=== PATIENT | female | born 1935 | race Caucasian/White ===

== ENCOUNTER 2016-10-21 00:08 | Emergency (ER) | payer MEDICARE, BC ==
--- NOTE | 2016-10-21 00:25 | ED ---
General Adult HPI - General Stated complaint: fell, head injury Time Seen by Provider: 10/21/16 00:18 Source: patient, EMS, RN notes reviewed Mode of arrival: EMS Limitations: no limitations - History of Present Illness Initial comments: Patient is a pleasant 81-year-old female presenting to the emergency department following a fall. Patient has frequent falls. Patient did strike the right side of her head. No loss of consciousness. Patient only has mild headache. No neck or back pain. No new extremity pain however patient does have discomfort of her right ankle from a fall previously. Patient also has some discomfort of her left ribs also from her previous fall. No difficulty in breathing. No confusion or weakness. - Related Data Home Medications Medication Instructions Recorded Confirmed Aspirin [Adult Low Dose Aspirin EC] 81 mg PO DAILY 09/10/15 06/01/16 Ciclesonide [Alvesco] 1 puff INHALATION RT-BID 09/10/15 06/01/16 Montelukast [Singulair] 10 mg PO HS 09/10/15 06/01/16 Phenytoin Sodium Extended 100 mg PO QAM 09/10/15 06/01/16 [Dilantin] Phenytoin Sodium Extended 200 mg PO HS 09/10/15 06/01/16 [Dilantin] Sertraline [Zoloft] 50 mg PO DAILY 09/10/15 06/01/16 cycloSPORINE [Restasis] 1 drop BOTH EYES HS 09/10/15 06/01/16 Budesonide [Pulmicort] 0.5 mg INHALATION RT-BID 05/09/16 06/01/16 Multivitamins, Thera [Multivitamin] 1 tab PO DAILY 05/09/16 06/01/16 Esomeprazole Magnesium [NexIUM] 20 mg PO DAILY 05/16/16 06/01/16 Atorvastatin [Lipitor] 10 mg PO HS 06/01/16 06/01/16 Bisacodyl [Dulcolax] 10 mg RECTAL DAILY PRN 06/01/16 06/01/16 Clotrimazole/Betamethasone Dip 1 applic TOPICAL Q12H 06/01/16 06/01/16 [Lotrisone Cream] Dimethicone/Zinc Oxide [Inzo Zinc 1 applic TOPICAL Q12H 06/01/16 06/01/16 Oxide Barrier Cream] Furosemide [Lasix] 10 mg PO DAILY 06/01/16 06/01/16 Lactulose 10 gm PO BID 06/01/16 06/01/16 Magnesium Hydroxide [Milk of 2,400 mg PO DAILY PRN 06/01/16 06/01/16 Magnesia] Na Phos,M-B/Na Phos,Di-Ba [Fleet 133 ml RECTAL DAILY PRN 06/01/16 06/01/16 Adult] Polyethylene Glycol 3350 [Miralax] 17 gm PO MOWEFR 06/01/16 06/01/16 guaiFENesin [guaiFENesin ER] 1,200 mg PO BID 06/01/16 06/01/16 Previous Rx's Medication Instructions Recorded Ipratropium-Albuterol Nebulize 3 ml INHALATION RT-QID ampul.neb 05/19/16 [Duoneb 0.5 mg-3 mg/3 ml Soln] Lisinopril [Zestril] 10 mg PO DAILY tab 05/19/16 Cefuroxime [Ceftin] 500 mg PO BID #10 tab 06/03/16 Hydrocodone/Acetaminophen [[place] 1 tab PO Q6H PRN #20 tablet 06/03/16 5-325] Ipratropium-Albuterol Nebulize 3 ml INHALATION RT-QID PRN #0 06/03/16 [Duoneb 0.5 mg-3 mg/3 ml Soln] ampul.neb Zaleplon 5 mg PO HS #10 capsule 06/03/16 Allergies Allergy/AdvReac Type Severity Reaction Status Date / Time shellfish derived [Shellfish] Allergy Unknown Verified 05/16/16 11:59 sulfamethoxazole Allergy Unknown Verified 06/01/16 22:33 [From Bactrim] trimethoprim [From Bactrim] Allergy Unknown Verified 06/01/16 22:33 yeast, dried [yeast] Allergy Unknown Verified 05/16/16 11:59 Review of Systems ROS Statement: Those systems with pertinent positive or pertinent negative responses have been documented in the HPI. ROS Other: All systems not noted in ROS Statement are negative. Constitutional: Denies: fever Eyes: Denies: eye pain ENT: Denies: ear pain Respiratory: Denies: cough, dyspnea Cardiovascular: Denies: palpitations Endocrine: Denies: fatigue Gastrointestinal: Denies: abdominal pain Genitourinary: Denies: dysuria Musculoskeletal: Denies: back pain Skin: Denies: rash Neurological: Reports: headache (Mild). Denies: weakness Past Medical History Past Medical History: Asthma, COPD, GERD/Reflux, Hyperlipidemia, Hypertension, Pneumonia Additional Past Medical History / Comment(s): uti, djd, fall/lt rib fx History of Any Multi-Drug Resistant Organisms: None Reported Past Surgical History: Section, Cholecystectomy, Hernia Repair, Orthopedic Surgery Additional Past Surgical History / Comment(s): right wrist rx, right ankle rx Past Anesthesia/Blood Transfusion Reactions: No Reported Reaction Past Psychological History: Depression Additional Psychological History / Comment(s): admits to some deprssion denies thaoughts of harming self but feels hpelessness for future. Smoking Status: Former smoker Past Alcohol Use History: None Reported Past Drug Use History: None Reported - Past Family History Mother History Unknown: Yes Father Family Medical History: Myocardial Infarction ([place]) General Exam Limitations: no limitations General appearance: alert, in no apparent distress Head exam: Present: atraumatic, normocephalic Eye exam: Present: normal appearance, PERRL, EOMI ENT exam: Present: normal oropharynx Neck exam: Present: normal inspection. Absent: tenderness Respiratory exam: Present: normal lung sounds bilaterally, chest wall tenderness (Mild tenderness left lateral ribs) Cardiovascular Exam: Present: regular rate, normal rhythm GI/Abdominal exam: Present: soft. Absent: tenderness Extremities exam: Present: tenderness (Mild tenderness right ankle), pedal edema Neurological exam: Present: alert, CN II-XII intact. Absent: motor sensory deficit Psychiatric exam: Present: normal affect, normal mood Skin exam: Absent: rash Course Vital Signs 10/21/16 10/21/16 10/21/16 00:36 00:50 02:00 Temperature 97.8 F Pulse Rate 87 88 73 Respiratory 18 18 20 Rate Blood Pressure 152/71 149/79 126/58 O2 Sat by Pulse 95 97 96 Oximetry - Reevaluation(s) Reevaluation #1: 10/21/16 01:50 Patient reevaluated. Patient and family updated on x-ray results. Family is concerned regarding pedal edema and would like blood work done. EKG Findings - EKG Comments: EKG Findings:: Normal sinus rhythm at 76. Normal intervals. Left axis. LVH. Nonspecific ST-T. Medical Decision Making - Lab Data Result diagrams: 10/21/16 01:57 10/21/16 01:57 Lab Results 10/21/16 10/21/16 10/21/16 Range/Units 01:57 01:57 01:57 WBC 14.2 H (3.8-10.6) k/uL RBC 4.03 (3.80-5.40) m/uL Hgb 11.4 (11.4-16.0) gm/dL Hct 36.0 (34.0-46.0) % MCV 89.2 (80.0-100.0) fL MCH 28.3 (25.0-35.0) pg MCHC 31.7 (31.0-37.0) g/dL RDW 15.0 (11.5-15.5) % Plt Count 350 (150-450) k/uL Neutrophils % 88 % Lymphocytes % 4 % Monocytes % 6 % Eosinophils % 1 % Basophils % 0 % Neutrophils # 12.4 H (1.3-7.7) k/uL Lymphocytes # 0.6 L (1.0-4.8) k/uL Monocytes # 0.9 (0-1.0) k/uL Eosinophils # 0.2 (0-0.7) k/uL Basophils # 0.0 (0-0.2) k/uL PT (9.0-12.0) sec INR (<1.1) APTT (22.0-30.0) sec Sodium 139 (137-145) mmol/L Potassium 3.8 (3.5-5.1) mmol/L Chloride 101 (98-107) mmol/L Carbon Dioxide 28 (22-30) mmol/L Anion Gap 10 mmol/L BUN 22 H (7-17) mg/dL Creatinine 0.60 (0.52-1.04) mg/dL Est GFR (MDRD) Af Amer >60 (>60 ml/min/1.73 sqM) Est GFR (MDRD) Non-Af >60 (>60 ml/min/1.73 sqM) Glucose 133 H (74-99) mg/dL Calcium 8.4 (8.4-10.2) mg/dL Total Bilirubin 0.4 (0.2-1.3) mg/dL AST 20 (14-36) U/L ALT 25 (9-52) U/L Alkaline Phosphatase 97 (38-126) U/L Total Creatine Kinase 292 H (30-135) U/L CK-MB (CK-2) 2.9 H* (0.0-2.4) ng/mL CK-MB (CK-2) Rel Index 1.0 Troponin I 0.030 (0.000-0.034) ng/mL NT-Pro-B Natriuret Pep pg/mL Total Protein 6.9 (6.3-8.2) g/dL Albumin 3.4 L (3.5-5.0) g/dL 10/21/16 10/21/16 Range/Units 01:57 01:57 WBC (3.8-10.6) k/uL RBC (3.80-5.40) m/uL Hgb (11.4-16.0) gm/dL Hct (34.0-46.0) % MCV (80.0-100.0) fL MCH (25.0-35.0) pg MCHC (31.0-37.0) g/dL RDW (11.5-15.5) % Plt Count (150-450) k/uL Neutrophils % % Lymphocytes % % Monocytes % % Eosinophils % % Basophils % % Neutrophils # (1.3-7.7) k/uL Lymphocytes # (1.0-4.8) k/uL Monocytes # (0-1.0) k/uL Eosinophils # (0-0.7) k/uL Basophils # (0-0.2) k/uL PT 10.8 (9.0-12.0) sec INR 1.1 (<1.1) APTT 25.2 (22.0-30.0) sec Sodium (137-145) mmol/L Potassium (3.5-5.1) mmol/L Chloride (98-107) mmol/L Carbon Dioxide (22-30) mmol/L Anion Gap mmol/L BUN (7-17) mg/dL Creatinine (0.52-1.04) mg/dL Est GFR (MDRD) Af Amer (>60 ml/min/1.73 sqM) Est GFR (MDRD) Non-Af (>60 ml/min/1.73 sqM) Glucose (74-99) mg/dL Calcium (8.4-10.2) mg/dL Total Bilirubin (0.2-1.3) mg/dL AST (14-36) U/L ALT (9-52) U/L Alkaline Phosphatase (38-126) U/L Total Creatine Kinase (30-135) U/L CK-MB (CK-2) (0.0-2.4) ng/mL CK-MB (CK-2) Rel Index Troponin I (0.000-0.034) ng/mL NT-Pro-B Natriuret Pep 540 pg/mL Total Protein (6.3-8.2) g/dL Albumin (3.5-5.0) g/dL - Radiology Data Radiology results: report reviewed (Computed tomography scan of the brain shows no acute intercranial hemorrhage. Atrophy is present. Computed tomography scan of the cervical spine shows multilevel degenerative change. Minor retro- listhesis C3/C4 was likely old. No definite acute fracture.), image reviewed (X -ray the right ankle shows no acute fracture. Old fracture. One view chest x- ray shows interstitial lung changes versus edema. No significant change.) Disposition Clinical Impression: Fall, Leg edema, Head injury Disposition: HOME SELF-CARE Condition: Stable Instructions: Fall Prevention for Older Adults (ED), Leg Edema (ED), Head Injury (ED) Additional Instructions: Please follow-up with primary care physician on Sunday. Return for change in mental status, confusion, weakness, difficulty breathing, increased leg swelling , worsening symptoms or other concerns. Referrals: Michael Rincon MD [Primary Care Provider] - 1-2 days
--- NOTE | 2016-10-21 01:05 | CT ---
EXAMINATION TYPE: CT brain cspine wo con DATE OF EXAM: 10/21/2016 12:49 AM COMPARISON: NONE HISTORY: fall, left posterior side pain CT DLP: 1394.20 mGycm Automated exposure control for dose reduction was used. TECHNIQUE: CT scan of the head and cervical spine are performed without contrast. FINDINGS: CT BRAIN: No significant cephalohematoma or depressed skull fracture is noted. Mild sclerotic focus in the righ t frontal bone in the axial image 21 is most likely a benign process or bone island. There is no acute intracranial hemorrhage, mass effect, or midline shift identified. The ventricles a nd cortical sulci are prominent with age-related atrophic changes with periventricular white matter i schemic changes of chronic nature. Postsurgical changes are suggested in the right eye globe. [id number] mucosal thickening is not ed in the maxillary sinuses with chronic sinusitis changes. CERVICAL SPINE: There is generalized osteopenia. Multilevel degenerative changes are present in the cervical spine wi th endplate sclerotic changes and cystic changes. Minor retrolisthesis of C3 and C4 vertebra is noted with the degenerative disc disease changes. Super ior endplate cystic changes are noted in the C3 vertebra and C6 vertebra. Multilevel degenerative disc disease changes are present with mild disc osteophyte complexes in the c ervical spine with mild foramina and canal narrowing. No definite acute fracture is noted in the cervical spine. Mild biapical pleural thickening and scarring is suggested with possible mild right-sided pleural eff usion. Carotid arterial calcification is noted bilaterally. IMPRESSION: 1. No acute process is noted in the brain. Age-related atrophic changes of brain. 2. No significant depressed skull fracture or cephalohematoma is noted. 3. Multilevel degenerative changes in the cervical spine. 4. Minor retrolisthesis of C3 and C4 vertebra is most likely old. 5. No definite acute fracture is noted in the cervical spine.
--- NOTE | 2016-10-21 01:09 | XR ---
EXAMINATION TYPE: XR ankle complete RT DATE OF EXAM: 10/21/2016 12:47 AM COMPARISON: NONE HISTORY: Pain TECHNIQUE: Frontal, lateral and oblique images of the right ankle are obtained. COMPARISON: None. FINDINGS: Old fracture dislocation changes of right ankle are noted with mild medial subluxation of tibiotalar joint of chronic nature. Old comminuted healed fracture of right lateral malleolus is noted. There is generalized osteopenia. Surrounding soft tissue swelling is noted. Slightly prominent plantar calcan eal spur is noted. Diffuse edema is noted in the right leg. IMPRESSION: 1. There is no acute fracture. 2. Old fracture dislocation in the right ankle. 3. Diffuse soft tissue swelling and edema. 4. Slightly prominent plantar calcaneal spur.
--- NOTE | 2016-10-21 01:14 | XR ---
EXAMINATION TYPE: XR chest 1V portable DATE OF EXAM: 10/21/2016 12:47 AM COMPARISON: 06/01/2016 HISTORY: Pain history of fall. TECHNIQUE: Single frontal view of the chest is obtained. Portable study upright 10/21/2016. 12:31 AM h ours FINDINGS: Mild bilateral pleural effusions and bibasilar lung infiltrates and atelectasis is noted with pulmona ry edema and CHF changes and chronic interstitial lung changes bilaterally. Moderate cardiomegaly and tortuous thoracic aorta with atherosclerotic changes in the aortic arch are noted. Old partially united fracture neck of left humerus is noted. There is possibility of old left rib fra ctures. IMPRESSION: 1. No significant change. 2. Mild CHF changes with bilateral pleural effusions and pulmonary edema changes. These changes may a lso represent chronic interstitial lung changes.
[2016-10-21 01:46] VITALS: TEMP 97.8
[2016-10-21] MEDS ORDERED: FUROSEMIDE 10 MG/ML 4 ML VIAL IV STA (01:50)
[2016-10-21] MEDS ORDERED: ACETAMINOPHEN TAB 325 MG TAB PO STA (02:08)
[2016-10-21 02:13] LABS: Basophils % (A) 0 %; CH 28.8; CHCM 32.5; Eosinophils # (A) 0.2 k/uL (0-0.7); Eosinophils % (A) 1 %; HGB 11.4 gm/dL (11.4-16.0); Luc # (Auto) 0.15; Luc % (Auto) 1; Lymphocytes # (A) 0.6 k/uL (1.0-4.8); Lymphocytes % (A) 4 %; MCH 28.3 pg (25.0-35.0); MCHC 31.7 g/dL (31.0-37.0); MCV 89.2 fL (80.0-100.0); Mean Platelet Volume 6.6; Monocytes # (A) 0.9 k/uL (0-1.0); Monocytes % (A) 6 %; Neutrophils # (A) 12.4 k/uL (1.3-7.7); Neutrophils % (A) 88 %; RBC 4.03 m/uL (3.80-5.40); WBC 14.2 k/uL (3.8-10.6); WBC (Perox) 14.13
[2016-10-21 02:19] LABS: INR 1.1 (<1.1); Partial Thromboplastin Time 25.2 sec (22.0-30.0); Prothrombin Time 10.8 sec (9.0-12.0)
[2016-10-21 02:22] LABS: ALT 25 U/L (9-52); AST 20 U/L (14-36); Alkaline Phosphatase 97 U/L (38-126); Anion Gap 10 mmol/L; Blood Urea Nitrogen 22 mg/dL (7-17); Calcium 8.4 mg/dL (8.4-10.2); Carbon Dioxide 28 mmol/L (22-30); Chloride 101 mmol/L (98-107); Glucose 133 mg/dL (74-99); Non-African American GFR(MDRD) >60 (>60 ml/min/1.73 sqM); Potassium 3.8 mmol/L (3.5-5.1); Sodium 139 mmol/L (137-145); Total Bilirubin 0.4 mg/dL (0.2-1.3); Total Protein 6.9 g/dL (6.3-8.2)
[2016-10-21 02:43] LABS: Troponin I 0.03 ng/mL (0.000-0.034)
[2016-10-21 02:48] LABS: Creatine Kinase MB 2.9 ng/mL (0.0-2.4)
[2016-10-21 03:56] VITALS: BP 158/79; PULSE 78; RESP 16
== END 2016-10-21 03:55 | disposition home or self-care (01) ==
LOC: EC 00:08
DX: S09.90XA Unspecified injury of head, initial encounter (principal); R60.0 Localized edema; I10 Essential (primary) hypertension; E78.5 Hyperlipidemia, unspecified; J45.909 Unspecified asthma, uncomplicated; J44.9 Chronic obstructive pulmonary disease, unspecified; K21.9 Gastro-esophageal reflux disease without esophagitis; F32.9 Major depressive disorder, single episode, unspecified; W19.XXXA Unspecified fall, initial encounter; Z87.891 Personal history of nicotine dependence; Z88.2 Allergy status to sulfonamides; Z91.013 Allergy to seafood; Z91.018 Allergy to other foods; Z79.82 Long term (current) use of aspirin; Z79.899 Other long term (current) drug therapy; Z79.51 Long term (current) use of inhaled steroids; Z91.81 History of falling
CPT/HCPCS: 99285; 96374; 36415; 93005; 83880; 80053; 82550; 82553; 84484; 85025; 85610; 85730; 71010; 73610; 72125; 70450; J1940

== ENCOUNTER 2016-11-05 06:21 | Inpatient (IN) | payer MEDICARE, BC ==
--- NOTE | 2016-11-05 06:38 | ED ---
Fall HPI - General Source: patient, EMS, RN notes reviewed Mode of arrival: EMS - History of Present Illness MD Complaint: fall <Juan Goddard - Last Filed: 11/05/16 07:32> <Scott Ling - Last Filed: 11/05/16 08:45> - General Chief Complaint: Fall Stated Complaint: Fall Time Seen by Provider: 11/05/16 06:21 - History of Present Illness Initial Comments: This is a 81-year-old female who states she was going the bathroom when her leg someone gave out and she fell backwards. She struck the back or his complains of head pain and left arm pain from her shoulder down to her mid forearm. She has no loss of consciousness no focal weakness she did not feel dizzy or lightheaded. Complaints she was brought in by EMS he was placed in a cervical collar she'll get pain medication she does states she has somewhat relief from her head pain when she was placed in a c-collar. Also her upper neck she states does hurt somewhat (Juan Goddard) - Related Data Home Medications Medication Instructions Recorded Confirmed Aspirin [Adult Low Dose Aspirin EC] 81 mg PO DAILY 09/10/15 06/01/16 Ciclesonide [Alvesco] 1 puff INHALATION RT-BID 09/10/15 06/01/16 Montelukast [Singulair] 10 mg PO HS 09/10/15 06/01/16 Phenytoin Sodium Extended 100 mg PO QAM 09/10/15 06/01/16 [Dilantin] Phenytoin Sodium Extended 200 mg PO HS 09/10/15 06/01/16 [Dilantin] Sertraline [Zoloft] 50 mg PO DAILY 09/10/15 06/01/16 cycloSPORINE [Restasis] 1 drop BOTH EYES HS 09/10/15 06/01/16 Budesonide [Pulmicort] 0.5 mg INHALATION RT-BID 05/09/16 06/01/16 Multivitamins, Thera [Multivitamin] 1 tab PO DAILY 05/09/16 06/01/16 Esomeprazole Magnesium [NexIUM] 20 mg PO DAILY 05/16/16 06/01/16 Atorvastatin [Lipitor] 10 mg PO HS 06/01/16 06/01/16 Bisacodyl [Dulcolax] 10 mg RECTAL DAILY PRN 06/01/16 06/01/16 Clotrimazole/Betamethasone Dip 1 applic TOPICAL Q12H 06/01/16 06/01/16 [Lotrisone Cream] Dimethicone/Zinc Oxide [Inzo Zinc 1 applic TOPICAL Q12H 06/01/16 06/01/16 Oxide Barrier Cream] Furosemide [Lasix] 10 mg PO DAILY 06/01/16 06/01/16 Lactulose 10 gm PO BID 06/01/16 06/01/16 Magnesium Hydroxide [Milk of 2,400 mg PO DAILY PRN 06/01/16 06/01/16 Magnesia] Na Phos,M-B/Na Phos,Di-Ba [Fleet 133 ml RECTAL DAILY PRN 06/01/16 06/01/16 Adult] Polyethylene Glycol 3350 [Miralax] 17 gm PO MOWEFR 06/01/16 06/01/16 guaiFENesin [guaiFENesin ER] 1,200 mg PO BID 06/01/16 06/01/16 Previous Rx's Medication Instructions Recorded Ipratropium-Albuterol Nebulize 3 ml INHALATION RT-QID ampul.neb 05/19/16 [Duoneb 0.5 mg-3 mg/3 ml Soln] Lisinopril [Zestril] 10 mg PO DAILY tab 05/19/16 Cefuroxime [Ceftin] 500 mg PO BID #10 tab 06/03/16 Hydrocodone/Acetaminophen [[place] 1 tab PO Q6H PRN #20 tablet 06/03/16 5-325] Ipratropium-Albuterol Nebulize 3 ml INHALATION RT-QID PRN #0 06/03/16 [Duoneb 0.5 mg-3 mg/3 ml Soln] ampul.neb Zaleplon 5 mg PO HS #10 capsule 06/03/16 Allergies Allergy/AdvReac Type Severity Reaction Status Date / Time shellfish derived [Shellfish] Allergy Unknown Verified 05/16/16 11:59 sulfamethoxazole Allergy Unknown Verified 06/01/16 22:33 [From Bactrim] trimethoprim [From Bactrim] Allergy Unknown Verified 06/01/16 22:33 yeast, dried [yeast] Allergy Unknown Verified 05/16/16 11:59 Review of Systems ROS Other: All systems not noted in ROS Statement are negative. <Juan Goddard - Last Filed: 11/05/16 07:32> ROS Other: All systems not noted in ROS Statement are negative. <Scott Ling - Last Filed: 11/05/16 08:45> ROS Statement: Those systems with pertinent positive or pertinent negative responses have been documented in the HPI. Past Medical History Past Medical History: Asthma, Heart Failure, COPD, GERD/Reflux, Hyperlipidemia, Hypertension, Pneumonia Additional Past Medical History / Comment(s): uti, djd, fall/lt rib fx History of Any Multi-Drug Resistant Organisms: None Reported Past Surgical History: Section, Cholecystectomy, Hernia Repair, Orthopedic Surgery Additional Past Surgical History / Comment(s): right wrist rx, right ankle rx Past Anesthesia/Blood Transfusion Reactions: No Reported Reaction Past Psychological History: Depression Additional Psychological History / Comment(s): admits to some deprssion denies thaoughts of harming self but feels hpelessness for future. Smoking Status: Former smoker Past Alcohol Use History: None Reported Past Drug Use History: None Reported - Past Family History Mother History Unknown: Yes Father Family Medical History: Myocardial Infarction ([place]) <Juan Goddard - Last Filed: 11/05/16 07:32> General Exam Limitations: physical limitation General appearance: alert, in no apparent distress Head exam: Present: normocephalic, normal inspection, other (Initial the right occipital parietal scalp no step-off or crepitation no ecchymosis seen) Eye exam: Present: normal appearance, PERRL, EOMI. Absent: scleral icterus, conjunctival injection, periorbital swelling ENT exam: Present: normal exam, mucous membranes moist Neck exam: Present: tenderness, other (Cervical collar is in place no anterior tenderness or some tenderness palpation of the paraspinous muscles at the base of the skull no definite trapezius tenderness no other spinal tenderness). Absent: lymphadenopathy Respiratory exam: Present: normal lung sounds bilaterally. Absent: respiratory distress, wheezes, rales, rhonchi, stridor Cardiovascular Exam: Present: regular rate, normal rhythm, normal heart sounds. Absent: systolic murmur, diastolic murmur, rubs, gallop, clicks GI/Abdominal exam: Present: soft, normal bowel sounds. Absent: distended, tenderness, guarding, rebound, rigid Rectal exam: Present: deferred Extremities exam: Present: tenderness, normal capillary refill, other ( Tenderness over the mid to distal left humerus and proximal forearm no definite step-off or crepitation the patient does have reasonable range of motion of her left shoulder. No before meals tenderness. No tenderness over the wrist and hand or fingers on the left side community extremities are unremarkable other than stasis dermatitis). Absent: full ROM Back exam: Present: normal inspection Neurological exam: Present: alert, oriented X3, CN II-XII intact Psychiatric exam: Present: normal affect, normal mood Skin exam: Present: warm, dry, intact <Juan Goddard - Last Filed: 11/05/16 07:32> General appearance: alert, in no apparent distress Head exam: Present: atraumatic, normocephalic, normal inspection Eye exam: Present: normal appearance, PERRL, EOMI. Absent: scleral icterus, conjunctival injection, periorbital swelling ENT exam: Present: normal exam, mucous membranes moist Neck exam: Present: normal inspection. Absent: tenderness, meningismus, lymphadenopathy Respiratory exam: Present: normal lung sounds bilaterally. Absent: respiratory distress, wheezes, rales, rhonchi, stridor Cardiovascular Exam: Present: regular rate, normal rhythm, normal heart sounds. Absent: systolic murmur, diastolic murmur, rubs, gallop, clicks GI/Abdominal exam: Present: soft, normal bowel sounds. Absent: distended, tenderness, guarding, rebound, rigid Extremities exam: Present: normal inspection, full ROM, normal capillary refill. Absent: tenderness, pedal edema, joint swelling, calf tenderness Back exam: Present: normal inspection Neurological exam: Present: alert, oriented X3, CN II-XII intact Psychiatric exam: Present: normal affect, normal mood Skin exam: Present: warm, dry, intact, normal color. Absent: rash <Scott Ling - Last Filed: 11/05/16 08:45> - General Exam Comments Initial Comments: This is a well-developed well-nourished awake alert oriented 3 female she does demonstrate a [place] Coma Scale of 15 (Juan Goddard) Course <Juan Goddard - Last Filed: 11/05/16 07:32> <Scott Ling - Last Filed: 11/05/16 08:45> Vital Signs 11/05/16 06:28 Temperature 98.5 F Pulse Rate 71 Respiratory 16 Rate Blood Pressure 142/68 O2 Sat by Pulse 97 Oximetry - Reevaluation(s) Reevaluation #1: 11/05/16 07:32 The case is endorsed to Dr. Ling at shift change. (Juan Goddard) Reevaluation #2: 11/05/16 08:44 Patient is in no acute distress, pain is resolved, patient reexamined with no new complaints of pain. (Scott Ling) Medical Decision Making <Juan Goddard - Last Filed: 11/05/16 07:32> - Radiology Data Radiology results: report reviewed (CT bases 9, x-ray humerus wrist is negative for acute traumatic injury), image reviewed <Scott Ling - Last Filed: 11/05/16 08:45> - Medical Decision Making Female status post slip and fall, mechanical trip and fall, contusion, no acute bony injury or traumatic injury. CT x-ray negative, patient can be discharged home (Scott Ling) Disposition <Juan Goddard - Last Filed: 11/05/16 07:32> <Scott Ling - Last Filed: 11/05/16 08:45> Clinical Impression: Fall, Contusion of left shoulder Disposition: HOME SELF-CARE Condition: Good Instructions: Fall Prevention for Older Adults (ED) Referrals: Michael Rincon MD [Primary Care Provider] - 1-2 days
--- NOTE | 2016-11-05 07:33 | CT ---
EXAM: CT Head Without Intravenous Contrast. CLINICAL HISTORY: Reason: Pain TECHNIQUE: Axial computed tomography images of the head/brain without intravenous contrast. CTDI is 57.4, 17.7 mGy and DLP is 1047.1, 345.9 mGy-cm COMPARISON: No relevant prior studies available. FINDINGS: Brain: No evidence of large territory infarct, hemorrhage, mass or edema. Chronic small vessel ischemic disease and senescent changes. Small area of encephalomalacia within the left parietal lobe, right occipital lobe, and right cerebellum suggesting remote infarcts. Ventricles: Unremarkable. No ventriculomegaly. Bones/joints: Unremarkable. No acute fracture. Soft tissues: Unremarkable. Sinuses: Mild mucosal thickening in the paranasal sinuses. Mastoid air cells: Unremarkable as visualized. No mastoid effusion. IMPRESSION: No acute findings. EXAM: CT Cervical Spine Without Intravenous Contrast. CLINICAL HISTORY: Reason: Pain TECHNIQUE: Axial computed tomography images of the cervical spine without intravenous contrast. CTDI is 57.4, 17.7 mGy and DLP is 1047.1, 345.9 mGy-cm COMPARISON: No relevant prior studies available. FINDINGS: Vertebrae: Unremarkable. No acute fracture. Discs/spinal canal/neural foramina: Multilevel degenerative changes without evidence of acute fracture or traumatic malalignment. No spinal canal stenosis. Soft tissues: Unremarkable. Vasculature: Vascular calcifications are noted. Thyroid: Coarse calcification within the right thyroid gland. Lung apices: The visualized lung apices demonstrate biapical pleural- parenchymal scarring. IMPRESSION: No acute findings.
--- NOTE | 2016-11-05 08:31 | XR ---
EXAMINATION TYPE: XR humerus LT DATE OF EXAM: 11/05/2016 7:50 AM COMPARISON: NONE HISTORY: Pain TECHNIQUE: 2 view left humerus FINDINGS: No acute fractures are evident. An old fracture at the head of the humerus not excluded. Th e humeral head articulates with the glenoid. Acromioclavicular junction is normal. IMPRESSION: 1. No acute osseous abnormality.
--- NOTE | 2016-11-05 08:32 | XR ---
EXAMINATION TYPE: XR forearm LT DATE OF EXAM: 11/05/2016 7:50 AM COMPARISON: NONE HISTORY: Fall, pain TECHNIQUE: 2 view left forearm FINDINGS: No acute fractures evident. The radial head aligns normally with the humerus. Anterior fat pad is normal. Soft tissues are unremarkable. IMPRESSION: 1. Normal 2 view left forearm. 2. Follow-up exams can be performed 7-10 days from acute trauma for continued pain.
[2016-11-05] MEDS ORDERED: SODIUM CHLORIDE 0.9% 1,000 ML IV STA ×2 (08:57)
[2016-11-05 09:38] LABS: Basophils % (A) 0 %; CH 29.2; CHCM 32.6; Eosinophils # (A) 0.2 k/uL (0-0.7); Eosinophils % (A) 3 %; HCT 38.1 % (34.0-46.0); HDW 2.35; HGB 12.4 gm/dL (11.4-16.0); Luc # (Auto) 0.11; Luc % (Auto) 2; Lymphocytes # (A) 0.5 k/uL (1.0-4.8); Lymphocytes % (A) 6 %; MCH 29.4 pg (25.0-35.0); MCHC 32.6 g/dL (31.0-37.0); MCV 90.2 fL (80.0-100.0); Mean Platelet Volume 7.3; Monocytes # (A) 0.5 k/uL (0-1.0); Monocytes % (A) 7 %; Neutrophils # (A) 6.3 k/uL (1.3-7.7); Neutrophils % (A) 83 %; RBC 4.22 m/uL (3.80-5.40); RDW 14.4 % (11.5-15.5); WBC 7.7 k/uL (3.8-10.6); WBC (Perox) 7.83
--- NOTE | 2016-11-05 09:45 | ED ---
Medical Decision Making - Medical Decision Making 9 female in the ER comes emergency room today after slipping fall. Although polyp. Appears mechanical patient did have weakness denies chest pain mild shortness of breath prior to discharge patient is having increased shortness of breath with cough and congestion, lab work and x-ray were completed, patient is found to have pneumonia, patient be admitted for IV antibiotics and breathing treatments, IV fluid resuscitation. - Lab Data Result diagrams: 11/05/16 09:10 11/05/16 09:10 Lab Results 11/05/16 11/05/16 11/05/16 Range/Units 09:10 09:10 09:10 WBC 7.7 (3.8-10.6) k/uL RBC 4.22 (3.80-5.40) m/uL Hgb 12.4 (11.4-16.0) gm/dL Hct 38.1 (34.0-46.0) % MCV 90.2 (80.0-100.0) fL MCH 29.4 (25.0-35.0) pg MCHC 32.6 (31.0-37.0) g/dL RDW 14.4 (11.5-15.5) % Plt Count 316 (150-450) k/uL Neutrophils % 83 % Lymphocytes % 6 % Monocytes % 7 % Eosinophils % 3 % Basophils % 0 % Neutrophils # 6.3 (1.3-7.7) k/uL Lymphocytes # 0.5 L (1.0-4.8) k/uL Monocytes # 0.5 (0-1.0) k/uL Eosinophils # 0.2 (0-0.7) k/uL Basophils # 0.0 (0-0.2) k/uL PT (9.0-12.0) sec INR (<1.1) APTT (22.0-30.0) sec Sodium 137 (137-145) mmol/L Potassium 4.1 (3.5-5.1) mmol/L Chloride 90 L (98-107) mmol/L Carbon Dioxide 37 H (22-30) mmol/L Anion Gap 10 mmol/L BUN 28 H (7-17) mg/dL Creatinine 0.74 (0.52-1.04) mg/dL Est GFR (MDRD) Af Amer >60 (>60 ml/min/1.73 sqM) Est GFR (MDRD) Non-Af >60 (>60 ml/min/1.73 sqM) Glucose 109 H (74-99) mg/dL Calcium 8.7 (8.4-10.2) mg/dL Phosphorus 5.2 H (2.5-4.5) mg/dL Magnesium 2.5 H (1.6-2.3) mg/dL Total Bilirubin 0.5 (0.2-1.3) mg/dL AST 23 (14-36) U/L ALT 26 (9-52) U/L Alkaline Phosphatase 117 (38-126) U/L Total Creatine Kinase 36 (30-135) U/L CK-MB (CK-2) 0.9 (0.0-2.4) ng/mL CK-MB (CK-2) Rel Index 2.5 Troponin I 0.013 (0.000-0.034) ng/mL Total Protein 7.6 (6.3-8.2) g/dL Albumin 3.8 (3.5-5.0) g/dL 11/05/16 Range/Units 09:10 WBC (3.8-10.6) k/uL RBC (3.80-5.40) m/uL Hgb (11.4-16.0) gm/dL Hct (34.0-46.0) % MCV (80.0-100.0) fL MCH (25.0-35.0) pg MCHC (31.0-37.0) g/dL RDW (11.5-15.5) % Plt Count (150-450) k/uL Neutrophils % % Lymphocytes % % Monocytes % % Eosinophils % % Basophils % % Neutrophils # (1.3-7.7) k/uL Lymphocytes # (1.0-4.8) k/uL Monocytes # (0-1.0) k/uL Eosinophils # (0-0.7) k/uL Basophils # (0-0.2) k/uL PT 10.5 (9.0-12.0) sec INR 1.0 (<1.1) APTT 24.5 (22.0-30.0) sec Sodium (137-145) mmol/L Potassium (3.5-5.1) mmol/L Chloride (98-107) mmol/L Carbon Dioxide (22-30) mmol/L Anion Gap mmol/L BUN (7-17) mg/dL Creatinine (0.52-1.04) mg/dL Est GFR (MDRD) Af Amer (>60 ml/min/1.73 sqM) Est GFR (MDRD) Non-Af (>60 ml/min/1.73 sqM) Glucose (74-99) mg/dL Calcium (8.4-10.2) mg/dL Phosphorus (2.5-4.5) mg/dL Magnesium (1.6-2.3) mg/dL Total Bilirubin (0.2-1.3) mg/dL AST (14-36) U/L ALT (9-52) U/L Alkaline Phosphatase (38-126) U/L Total Creatine Kinase (30-135) U/L CK-MB (CK-2) (0.0-2.4) ng/mL CK-MB (CK-2) Rel Index Troponin I (0.000-0.034) ng/mL Total Protein (6.3-8.2) g/dL Albumin (3.5-5.0) g/dL - EKG Data -: EKG Interpreted by Va Rate: normal Interpretation: other (EKG shows junctional rhythm rate of 69, QRS 106, QTC 454) - Radiology Data Radiology results: report reviewed (Chest x-ray 2 views positive for pneumonia) , image reviewed Disposition Clinical Impression: Fall, Contusion of left shoulder, Weakness, Pneumonia, Dyspnea Disposition: ADMITTED IP TO THIS [facility] Condition: Good Instructions: Fall Prevention for Older Adults (ED) Referrals: Michael Rincon MD [Primary Care Provider] - 1-2 days
--- NOTE | 2016-11-05 09:45 | XR ---
EXAMINATION TYPE: XR chest 2V DATE OF EXAM: 11/05/2016 9:35 AM COMPARISON: 10/21/2016 INDICATION: Weakness, fall, COPD, CHF TECHNIQUE: Chest is examined in frontal and lateral projections. FINDINGS: The heart size is enlarged. The pulmonary vasculature is normal. Bibasilar infiltrates are present. Small pleural effusions are likely present. Findings appear simila r to prior. Infiltrate or fullness in the right suprahilar region may be present. Some apical thickening is prese nt on the right. Follow-up is recommended. IMPRESSION: 1. Small bilateral pleural effusions with bibasilar infiltrates. Correlate for atelectasis or atypica l pulmonary edema. Congestive heart failure could be considered. 2. Right apical thickening and fullness in the right paratracheal suprahilar region. Underlying mass is not excluded. Follow-up is recommended.
[2016-11-05 09:46] LABS: Partial Thromboplastin Time 24.5 sec (22.0-30.0); Prothrombin Time 10.5 sec (9.0-12.0)
[2016-11-05 09:48] LABS: ALT 26 U/L (9-52); AST 23 U/L (14-36); Alkaline Phosphatase 117 U/L (38-126); Anion Gap 10 mmol/L; Blood Urea Nitrogen 28 mg/dL (7-17); Calcium 8.7 mg/dL (8.4-10.2); Carbon Dioxide 37 mmol/L (22-30); Chloride 90 mmol/L (98-107); Glucose 109 mg/dL (74-99); Magnesium 2.5 mg/dL (1.6-2.3); Non-African American GFR(MDRD) >60 (>60 ml/min/1.73 sqM); Phosphorous 5.2 mg/dL (2.5-4.5); Potassium 4.1 mmol/L (3.5-5.1); Sodium 137 mmol/L (137-145); Total Bilirubin 0.5 mg/dL (0.2-1.3); Total Protein 7.6 g/dL (6.3-8.2)
[2016-11-05 10:10] LABS: Creatine Kinase MB 0.9 ng/mL (0.0-2.4); Troponin I 0.013 ng/mL (0.000-0.034)
[2016-11-05] MEDS ORDERED: IPRATROPIUM-ALBUTEROL 3 ML NEB INHALATION PRN (10:53)
[2016-11-05] MEDS ORDERED: LEVOFLOXACIN 750MG-D5W PMX 750 MG in DEXTROSE/WATER 1 150ML.BAG IVPB STA (10:53)
[2016-11-05] MEDS ORDERED: PNEUMONIA PROTOCOL UTILIZED 1 EACH MISC PO PRN (10:53)
[2016-11-05 11:08] LABS: Appearance,Urine Clear (Clear); Bilirubin,Urine Negative (Negative); Glucose,Urine (UA) Negative (Negative); Ketones,Urine Negative (Negative); Leukocyte Esterase,Urine Negative (Negative); Nitrite,Urine Negative (Negative); PH, Urine 7.5 (5.0-8.0); Protein,Urine Negative (Negative); Specific Gravity,Urine 1.007 (1.001-1.035); UA Billing (MACRO vs. MICRO) CHEM; Urobilinogen,Urine <2.0 mg/dL (<2.0)
[2016-11-05 12:13] LABS: Glucose,Whole Blood 105 mg/dL (75-99)
[2016-11-05] MEDS ORDERED: ALBUTEROL NEBULIZED 2.5 MG/3 ML INHALATION PRN (13:02)
[2016-11-05 14:00] VITALS: BMI 21.9
[2016-11-05] MEDS: SODIUM CHLORIDE 0.9% 1,000 ML IV SCH ×2 (14:03→20:20)
[2016-11-05] MEDS: cycloSPORINE 0.05% OPHTH 0.4 ML DROPERETTE BOTH EYES SCH ×2 (14:59→20:19)
--- NOTE | 2016-11-05 15:58 | HP ---
DATE OF ADMISSION: Patient is a 81-year-old female who came in after tripping and fall and patient is admitted for possibility of pneumonia, although patient does not have any fever. There is no pneumonic infiltrate on chest x-ray. I do not believe patient has pneumonia and patient has generalized weakness for which patient will need further evaluation with Physical Therapy. Patient denied any syncopal episodes. Patient had small bilateral pleural effusions and basilar infiltrates and there was a consideration of pulmonary edema or congestive heart failure. I believe patient mostly has pulmonary fibrosis. I will obtain a high-resolution CT. I do not believe patient has pulmonary edema clinically. Patient does not have any JVD. Patient's BNP is not elevated. Patient had a forearm x-ray, head and C-spine CT and humerus x-ray, all of which are negative. Patient was started on IV antibiotics and admitted for pneumonia treatment, although my suspicion is low for that. Patient was started on IV fluids, which will be continued at this point of time, although patient appears to be clinically dehydrated. Patient's echocardiogram in the past is essentially within normal limits. REVIEW OF SYSTEMS: CONSTITUTIONAL: No fever, no malaise, no fatigue. HEENT: No recent visual problems or hearing problems. Denied any sore throat. CARDIOVASCULAR: No chest pain, orthopnea, PND, no palpitations, no syncope. PULMONARY: Patient denied any shortness of breath, orthopnea. Patient was having some dry cough. GASTROINTESTINAL: No diarrhea, no nausea, no vomiting, no abdominal pain. Normoactive bowel sounds. NEUROLOGICAL: No headaches, no weakness, no numbness. HEMATOLOGICAL: Denies any bleeding or petechiae. GENITOURINARY: Denies any burning micturition, frequency, or urgency. MUSCULOSKELETAL/RHEUMATOLOGICAL: Denies any joint pain, swelling, or any muscle pain. ENDOCRINE: Denies any polyuria or polydipsia. The rest of the 14 point review of systems is negative. PAST MEDICAL HISTORY: Significant for COPD, possible pulmonary fibrosis, hypertension, hyperlipidemia, section, cholecystectomy, hernia repair, orthopedic surgery in the past and depression. FAMILY HISTORY: Significant for myocardial infarction. PHYSICAL EXAMINATION: VITAL SIGNS: Temperature 97.4, pulse of 75, respiratory rate of 16, blood pressure 125/59, saturating at 100% on room air. GENERAL: The patient is alert and oriented x3, not in any acute distress. Well developed, well nourished. HEENT: Pupils are round and equally reacting to light. EOMI. No scleral icterus. No conjunctival pallor. Normocephalic, atraumatic. No pharyngeal erythema. No thyromegaly. CARDIOVASCULAR: S1 and S2 present. No murmurs, rubs, or gallops. PULMONARY: Chest is clear to auscultation, no wheezing or crackles. ABDOMEN: Soft, nontender, nondistended, normoactive bowel sounds. No palpable organomegaly. MUSCULOSKELETAL: No joint swelling or deformity. EXTREMITIES: No cyanosis, clubbing, or pedal edema. NEUROLOGICAL: Gross neurological examination did not reveal any focal deficits. SKIN: No rashes. LABORATORY DATA: CBC, CMP, essentially within normal limits. UA is negative. ASSESSMENT AND PLAN: 1. Mechanical fall secondary to deconditioning, will obtain a PT, OT evaluation. Will see if patient will need any placement. 2. Mild clinical dehydration with elevated BUN. Continue with IV fluids to 1 L and after that, will stop the IV fluids. 3. Possible pulmonary fibrosis. I do not believe patient has diastolic dysfunction at this point of time. 4. Essential hypertension. 5. Hyperlipidemia. . 6. Gastroesophageal reflux disease. 7. Chronic obstructive pulmonary disease without any acute exacerbation. 8. Chronic hypercapnic respiratory failure secondary to chronic obstructive pulmonary disease and patient uses oxygen at home. Doing well regarding that. I do not believe patient has heart failure exacerbation at this point of time and I do not believe patient has pneumonia at this time. 9. Depression, for which her home medications will be continued.
[2016-11-05] MEDS: IPRATROPIUM-ALBUTEROL 3 ML NEB INHALATION SCH ×2 (16:50→19:39)
[2016-11-05 17:05] LABS: Glucose,Whole Blood 97 mg/dL (75-99)
--- NOTE | 2016-11-05 18:17 | CT ---
EXAMINATION TYPE: CT chest wo con DATE OF EXAM: 11/05/2016 6:02 PM COMPARISON: 05/17/2016 HISTORY: Cough. CT DLP: 397.30 mGycm Automated exposure control for dose reduction was used. FINDINGS: There is bilateral consolidation at the posterior lung bases with calcified bronchial cartilage and p ulmonary calcification. There is also bilateral lower lobe atelectasis. There is interstitial mild in filtrate in both lungs. There is some mild pleural thickening and infiltrate at the lung apices. Ther e are no hilar masses. There is no mediastinal adenopathy. There is a large hiatal hernia. I see no b akiko destructive process. IMPRESSION: BILATERAL LOWER LOBE PULMONARY CONSOLIDATION AND ATELECTASIS. LARGE HIATAL HERNIA. PULMONARY FIBROTIC CHANGES. I SEE NO DEFINITE PULMONARY MASS. THE PULMONARY MID AND UPPER LUNG FIELD INFILTRATES ARE IM PROVED COMPARED TO LAST CT SCAN. I SEE NO NEW PULMONARY DENSITY.
[2016-11-05] MEDS: HYDROcodone/APAP 5-325MG 1 EACH TAB PO PRN (18:30)
[2016-11-05] MEDS: BUDESONIDE 0.5 MG/2 ML NEBU INHALATION SCH (19:39)
[2016-11-05] MEDS: ATORVASTATIN 10 MG TAB PO SCH (20:19)
[2016-11-05] MEDS: PHENYTOIN SODIUM EXTENDED 100 MG CAP PO SCH (20:19)
[2016-11-05] MEDS ORDERED: TEMAZEPAM 15 MG CAP PO SCH (21:00)
[2016-11-05 22:36] LABS: Glucose,Whole Blood 112 mg/dL (75-99)
[2016-11-06] MEDS: HYDROcodone/APAP 5-325MG 1 EACH TAB PO PRN ×4 (00:25→23:17)
[2016-11-06 07:14] LABS: Glucose,Whole Blood 92 mg/dL (75-99)
[2016-11-06] MEDS: IPRATROPIUM-ALBUTEROL 3 ML NEB INHALATION SCH ×4 (08:44→21:14)
[2016-11-06] MEDS: BUDESONIDE 0.5 MG/2 ML NEBU INHALATION SCH ×2 (08:44→21:14)
[2016-11-06 09:06] LABS: CH 28.7; CHCM 31.2; HCT 38.1 % (34.0-46.0); HDW 2.39; HGB 11.9 gm/dL (11.4-16.0); Hypochromasia Slight; MCH 28.9 pg (25.0-35.0); MCHC 31.3 g/dL (31.0-37.0); MCV 92.5 fL (80.0-100.0); Mean Platelet Volume 6.3; RBC 4.12 m/uL (3.80-5.40); RDW 14.5 % (11.5-15.5); WBC 6.5 k/uL (3.8-10.6)
[2016-11-06 09:21] LABS: Anion Gap 8 mmol/L; Blood Urea Nitrogen 16 mg/dL (7-17); Calcium 8.9 mg/dL (8.4-10.2); Carbon Dioxide 34 mmol/L (22-30); Chloride 98 mmol/L (98-107); Glucose 90 mg/dL (74-99); Non-African American GFR(MDRD) >60 (>60 ml/min/1.73 sqM); Potassium 4.1 mmol/L (3.5-5.1); Sodium 140 mmol/L (137-145)
[2016-11-06] MEDS ORDERED: LEVOFLOXACIN 750MG-D5W PMX 750 MG in DEXTROSE/WATER 1 150ML.BAG IVPB SCH (11:00)
[2016-11-06] MEDS: PHENYTOIN SODIUM EXTENDED 100 MG CAP PO SCH ×2 (11:10→20:44)
[2016-11-06] MEDS: PANTOPRAZOLE 40 MG TABLET PO SCH (11:10)
[2016-11-06] MEDS: ASPIRIN 81 MG CHEW PO SCH (11:10)
[2016-11-06] MEDS: ENOXAPARIN 40 MG/0.4 ML SYRINGE SQ SCH (11:11)
[2016-11-06] MEDS: cycloSPORINE 0.05% OPHTH 0.4 ML DROPERETTE BOTH EYES SCH ×2 (11:11→20:44)
[2016-11-06] MEDS: SERTRALINE 50 MG TAB PO SCH (11:11)
[2016-11-06] MEDS: SODIUM CHLORIDE 0.9% 1,000 ML IV SCH (11:15)
[2016-11-06 12:26] LABS: Glucose,Whole Blood 90 mg/dL (75-99)
--- NOTE | 2016-11-06 15:21 | XR ---
EXAMINATION TYPE: XR chest 2V DATE OF EXAM: 11/06/2016 2:18 PM COMPARISON: 11/05/2016 HISTORY: Shortness of breath TECHNIQUE: Frontal and lateral views of the chest are obtained. FINDINGS: Scattered senescent parenchymal changes noted. Hyperinflation compatible with COPD. There is right lower lobe infiltrate noted. Small right-sided pleural effusion. There is also cardiom egaly with pulmonary venous congestion. Mediastinal structures are stable and grossly unremarkable. No evidence for hilar prominence. Degenerative changes dorsal spine. IMPRESSION: 1. Findings may reflect pneumonia and/or superimposed congestive failure.
--- NOTE | 2016-11-06 15:44 | P.PN ---
Subjective Date of service: 11/06/2016 Progress note being dictated for Dr. Mcitnosh. Interval history: This a 81-year-old female admitted with possible pneumonia and multiple other medical issues. Maintained on nebulized bronchodilators, antibiotics and steroids. Productive cough with dark yellow to pale green sputum, being collected for sputum culture. Breathing improving, maintaining O2 sats of 97% on 3 L nasal cannula. Chest x-ray reports pneumonia versus CHF. Chest CT reporting bilateral lower lobe pulmonary consolidation, atelectasis, large hiatal hernia, improved mid pulmonary and upper lung field infiltrates, no new pulmonary density. IV fluids discontinued. Preliminary urine culture pending. Preliminary blood cultures negative. Afebrile, normal WBC. Objective - Vital Signs Vital signs: Vital Signs Temp 98.0 F 11/06/16 15:00 Pulse 67 11/06/16 15:00 Resp 19 11/06/16 15:00 BP 125/65 11/06/16 15:00 Pulse Ox 97 11/06/16 15:00 Intake & Output 11/05/16 11/06/16 11/06/16 18:59 06:59 18:59 Intake Total 200 420 Balance 200 420 Weight 54.431 kg 54.431 kg Intake: Oral 200 420 Other: # Voids 2 8 1 - Exam PHYSICAL EXAM: VITAL SIGNS: As above GENERAL: [Sitting up in bed, tired appearing] HEENT: [Pupils equal conjunctiva normal.] NECK: [Supple, no JVD] RESPIRATORY EFFORT:[Mildly Increased] LUNGS: Rhonchorous, no wheezing, no crackles] CARDIOVASCULAR[regular S1 and S2, no murmurs rubs or gallops, trace edema] GI: [Abdomen soft, nontender, positive bowel sounds.] PSYCH: [Alert and oriented -3, mood and affect normal.] NEURO: Gross neurological examination did not reveal any focal deficits Microbiology 11/05/16 12:43 Blood Blood Culture - Preliminary No Growth after 24 hours 11/05/16 11:52 Blood Blood Culture - Preliminary No Growth after 24 hours 11/05/16 10:58 Urine,Voided Urine Culture - Preliminary - Labs CBC & Chem 7: 11/06/16 08:27 11/06/16 08:27 Labs: Abnormal Lab Results - Last 24 Hours (Table) 11/05/16 11/06/16 Range/Units 22:32 08:27 Carbon Dioxide 34 H (22-30) mmol/L POC Glucose (mg/dL) 112 H (75-99) mg/dL Microbiology - Last 24 Hours (Table) 11/05/16 12:43 Blood Culture - Preliminary Blood No Growth after 24 hours 11/05/16 11:52 Blood Culture - Preliminary Blood No Growth after 24 hours 11/05/16 10:58 Urine Culture - Preliminary Urine,Voided Assessment and Plan Plan: 1. [Mechanical fall secondary to deconditioning]. 2. [Mild clinical dehydration with elevated BUN]. 3. [Possible pulmonary fibrosis]. Doubt diastolic dysfunction at this time 4. [Essential hypertension]. 5. [Hyperlipidemia]. 6. [Gastroesophageal reflux disease]. 7. [COPD without acute exacerbation of]. 8. Chronic hypercapnic respiratory failure 9. Chronic Hypoxic respiratory failure on home O2 10. Depression Plan: Continue on current medication regime, nebulized bronchodilators, antibiotics, steroids, monitoring and symptomatic treatment. Evaluated by physical therapy and subacute rehab recommended at discharge. Discussed with family and [facility] is their preference. Discharge planning in progress for Sunday. Further recommendations to follow. The impression and plan of care has been dictated as directed. : I performed a H&P examination of this patient and discussed the same with the dictator. I agree with the dictator's note. Any additional findings/opinions/ etc. will be noted.
[2016-11-06 16:40] LABS: Glucose,Whole Blood 120 mg/dL (75-99)
[2016-11-06 20:39] LABS: Glucose,Whole Blood 108 mg/dL (75-99)
[2016-11-06] MEDS: ATORVASTATIN 10 MG TAB PO SCH (20:44)
[2016-11-07] MEDS: HYDROcodone/APAP 5-325MG 1 EACH TAB PO PRN (05:40)
[2016-11-07] MEDS: BUDESONIDE 0.5 MG/2 ML NEBU INHALATION SCH ×2 (07:01→20:03)
[2016-11-07] MEDS: IPRATROPIUM-ALBUTEROL 3 ML NEB INHALATION SCH ×4 (07:01→20:03)
[2016-11-07 07:04] LABS: Glucose,Whole Blood 100 mg/dL (75-99)
[2016-11-07] MEDS: POLYETHYLENE GLYCOL 3350 17 GM POWD.PACK PO PRN (09:43)
[2016-11-07] MEDS: PHENYTOIN SODIUM EXTENDED 100 MG CAP PO SCH ×2 (09:44→20:00)
[2016-11-07] MEDS: SERTRALINE 50 MG TAB PO SCH (09:44)
[2016-11-07] MEDS: ENOXAPARIN 40 MG/0.4 ML SYRINGE SQ SCH (09:44)
[2016-11-07] MEDS: cycloSPORINE 0.05% OPHTH 0.4 ML DROPERETTE BOTH EYES SCH ×2 (09:44→20:00)
[2016-11-07] MEDS: ASPIRIN 81 MG CHEW PO SCH (09:45)
[2016-11-07] MEDS: PANTOPRAZOLE 40 MG TABLET PO SCH (09:45)
[2016-11-07 12:18] LABS: Glucose,Whole Blood 101 mg/dL (75-99)
[2016-11-07] MEDS ORDERED: PNEUMOCOCCAL VACC-PNEUMOVAX 23 25 MCG/0.5 ML VIAL IM ONE (15:58)
[2016-11-07] MEDS ORDERED: INFLUENZA VACCINE (3YR+) 60 MCG/0.5 ML SYRINGE IM ONE (15:58)
--- NOTE | 2016-11-07 16:42 | P.PN ---
Subjective Date of service: 11/07/2016 Progress note being dictated for Dr. Mcintosh. Interval history: This a 81-year-old female admitted with possible pneumonia and multiple other medical issues. Maintained on nebulized bronchodilators, antibiotics and steroids. Productive cough with dark yellow sputum, being collected for sputum culture. Breathing improving, maintaining O2 sats of 97% on 3 L nasal cannula. Preliminary blood cultures negative. Afebrile, normal WBC. Breathing improving. Maintaining O2 sats of 97% on 3 L nasal cannula. Objective - Vital Signs Vital signs: Vital Signs Temp 98.5 F 11/07/16 15:00 Pulse 82 11/07/16 15:56 Resp 16 11/07/16 15:00 BP 130/70 11/07/16 15:00 Pulse Ox 97 11/07/16 15:00 Intake & Output 11/06/16 11/07/16 11/07/16 18:59 06:59 18:59 Intake Total 240 Balance 240 Weight 54.431 kg 83.5 kg Intake: Oral 240 Other: # Voids 1 5 2 - Exam PHYSICAL EXAM: VITAL SIGNS: As above GENERAL: [Sitting up in bed, no acute distress HEENT: [Pupils equal conjunctiva normal.] NECK: [Supple, no JVD] RESPIRATORY EFFORT:[Mildly Increased] LUNGS: Rhonchorous, no wheezing, no crackles] CARDIOVASCULAR[regular S1 and S2, no murmurs rubs or gallops, trace edema] GI: [Abdomen soft, nontender, positive bowel sounds.] PSYCH: [Alert and oriented -3, mood and affect normal.] NEURO: Gross neurological examination did not reveal any focal deficits Microbiology 11/05/16 12:43 Blood Blood Culture - Preliminary No Growth after 48 hours 11/05/16 11:52 Blood Blood Culture - Preliminary No Growth after 48 hours 11/05/16 10:58 Urine,Voided Urine Culture - Final - Labs CBC & Chem 7: 11/06/16 08:27 11/06/16 08:27 Labs: Abnormal Lab Results - Last 24 Hours (Table) 11/06/16 11/06/16 11/07/16 Range/Units 16:38 20:38 07:02 POC Glucose (mg/dL) 120 H 108 H 100 H (75-99) mg/dL 11/07/16 Range/Units 12:12 POC Glucose (mg/dL) 101 H (75-99) mg/dL Microbiology - Last 24 Hours (Table) 11/05/16 12:43 Blood Culture - Preliminary Blood No Growth after 48 hours 11/05/16 11:52 Blood Culture - Preliminary Blood No Growth after 48 hours 11/05/16 10:58 Urine Culture - Final Urine,Voided Assessment and Plan Plan: 1. [Mechanical fall secondary to deconditioning]. 2. [Mild clinical dehydration with elevated BUN]. 3. [Possible pulmonary fibrosis]. Doubt diastolic dysfunction at this time 4. [Essential hypertension]. 5. [Hyperlipidemia]. 6. [Gastroesophageal reflux disease]. 7. [COPD without acute exacerbation of]. 8. Chronic hypercapnic respiratory failure 9. Chronic Hypoxic respiratory failure on home O2 10. Depression Plan: Continue on current medication regime, nebulized bronchodilators, antibiotics, steroids, monitoring and symptomatic treatment. Discharge planning in progress for tomorrow to [facility]. Further recommendations to follow. The impression and plan of care has been dictated as directed. : I performed a H&P examination of this patient and discussed the same with the dictator. I agree with the dictator's note. Any additional findings/opinions/ etc. will be noted.
[2016-11-07 16:47] LABS: Glucose,Whole Blood 114 mg/dL (75-99)
[2016-11-07] MEDS: ATORVASTATIN 10 MG TAB PO SCH (20:00)
[2016-11-07 20:43] LABS: Glucose,Whole Blood 109 mg/dL (75-99)
[2016-11-08 07:34] LABS: Glucose,Whole Blood 91 mg/dL (75-99)
[2016-11-08] MEDS: BUDESONIDE 0.5 MG/2 ML NEBU INHALATION SCH (07:55)
[2016-11-08] MEDS: IPRATROPIUM-ALBUTEROL 3 ML NEB INHALATION SCH ×2 (07:55→11:46)
[2016-11-08 08:22] VITALS: BP 144/70; RESP 16; TEMP 98.4
[2016-11-08] MEDS: cycloSPORINE 0.05% OPHTH 0.4 ML DROPERETTE BOTH EYES SCH (08:30)
[2016-11-08] MEDS: PANTOPRAZOLE 40 MG TABLET PO SCH (08:30)
[2016-11-08] MEDS: POLYETHYLENE GLYCOL 3350 17 GM POWD.PACK PO PRN (08:30)
[2016-11-08] MEDS: ENOXAPARIN 40 MG/0.4 ML SYRINGE SQ SCH (08:30)
[2016-11-08] MEDS: ASPIRIN 81 MG CHEW PO SCH (08:31)
[2016-11-08] MEDS: SERTRALINE 50 MG TAB PO SCH (08:31)
[2016-11-08] MEDS: PHENYTOIN SODIUM EXTENDED 100 MG CAP PO SCH (08:31)
[2016-11-08 12:27] LABS: Glucose,Whole Blood 96 mg/dL (75-99)
[2016-11-08] MEDS: HYDROcodone/APAP 5-325MG 1 EACH TAB PO PRN (13:21)
--- NOTE | 2016-11-08 13:56 | P.DS ---
Providers Date of admission: 11/05/16 10:53 Attending physician: Francy Hathaway Primary care physician: Michael Hastings Sergey [facility] Course: Final Diagnoses: 1. [Mechanical fall secondary to deconditioning]. 2. [Possible pneumonia with Mild clinical dehydration with elevated BUN initially on admission]. 3. [Possible pulmonary fibrosis]. Doubt diastolic dysfunction at this time 4. [Essential hypertension]. 5. [Hyperlipidemia]. 6. [Gastroesophageal reflux disease]. 7. [COPD without acute exacerbation of]. 8. Chronic hypercapnic respiratory failure 9. Chronic Hypoxic respiratory failure on home O2 10. Depression Hospital course :This a 81-year-old female admitted with possible pneumonia and multiple other medical issues. Maintained on gentle IV fluid hydration, nebulized bronchodilators, antibiotics and steroids. Chest x-ray reports pneumonia. Chest CT reporting bilateral lower lobe pulmonary consolidation, atelectasis, large hiatal hernia, improved mid pulmonary and upper lung field infiltrates, no new pulmonary density. Significant clinical improvement. Afebrile, normal WBC. Microbiology 11/05/16 12:43 Blood Blood Culture - Preliminary No Growth after 48 hours 11/05/16 11:52 Blood Blood Culture - Preliminary No Growth after 48 hours 11/05/16 10:58 Urine,Voided Urine Culture - Final Patient Condition at Discharge: Stable Plan - Discharge Summary New Discharge Prescriptions: Hydrocodone/Acetaminophen [Hendricks 5-325] 1 tab PO Q6H PRN #20 tablet PRN Reason: Pain Discharge Medication List Aspirin [Adult Low Dose Aspirin EC] 81 mg PO DAILY 09/10/15 [History] Ciclesonide [Alvesco] 1 puff INHALATION RT-BID 09/10/15 [History] Montelukast [Singulair] 10 mg PO HS 09/10/15 [History] Phenytoin Sodium Extended [Dilantin] 100 mg PO QAM 09/10/15 [History] Phenytoin Sodium Extended [Dilantin] 200 mg PO HS 09/10/15 [History] Sertraline [Zoloft] 50 mg PO DAILY 09/10/15 [History] Budesonide [Pulmicort] 0.5 mg INHALATION RT-BID 05/09/16 [History] Ammonium Lactate Lotion [Lac-Hydrin 12% Lotion] 1 applic TOPICAL BID PRN [History] Ipratropium-Albuterol Nebulize [Duoneb 0.5 mg-3 mg/3 ml Soln] 3 ml INHALATION RT -QID 11/05/16 [History] Loratadine [Claritin] 10 mg PO DAILY 11/05/16 [History] Omeprazole [PriLOSEC] 20 mg PO DAILY 11/05/16 [History] Ramelteon [Rozerem] 8 mg PO HS 11/05/16 [History] Simvastatin [Zocor] 20 mg PO HS 11/05/16 [History] cycloSPORINE [Restasis] 1 drop BOTH EYES Q12H 11/05/16 [History] Hydrocodone/Acetaminophen [Hendricks 5-325] 1 tab PO Q6H PRN #20 tablet 11/08/16 [Rx ] Polyethylene Glycol 3350 [Miralax] 17 gm PO DAILY PRN #0 powd.pack 11/08/16 [Rx] Follow up Appointment(s)/Referral(s): Michael Rincon MD [Primary Care Provider] - 3 Days Patient Instructions/Handouts: Heart Failure (DC), Fall Prevention for Older Adults (ED)
[2016-11-08] MEDS ORDERED: LACTULOSE 20 GM/30 ML CUP PO ONE (14:15)
[2016-11-08 14:17] VITALS: PULSE 69
== END 2016-11-08 15:36 | DRG 640 ==
LOC: EC 06:21 → 4MS4W 10:53
PROVIDERS: ADMIT Hospitalist; ATTEND Hospitalist
DX: E86.0 Dehydration (principal); J18.9 Pneumonia, unspecified organism; J96.11 Chronic respiratory failure with hypoxia; I11.0 Hypertensive heart disease with heart failure; I50.9 Heart failure, unspecified; J96.12 Chronic respiratory failure with hypercapnia; J44.0 Chronic obstructive pulmonary disease with (acute) lower respiratory infection; J84.10 Pulmonary fibrosis, unspecified; Z99.81 Dependence on supplemental oxygen; R94.4 Abnormal results of kidney function studies; J45.909 Unspecified asthma, uncomplicated; S40.012A Contusion of left shoulder, initial encounter; R51 Headache; K21.9 Gastro-esophageal reflux disease without esophagitis; M54.2 Cervicalgia; R40.2410 Glasgow coma scale score 13-15, unspecified time; R53.1 Weakness; M19.90 Unspecified osteoarthritis, unspecified site; E78.5 Hyperlipidemia, unspecified; K44.9 Diaphragmatic hernia without obstruction or gangrene; F32.9 Major depressive disorder, single episode, unspecified; Z82.49 Family history of ischemic heart disease and other diseases of the circulatory system; Z87.891 Personal history of nicotine dependence; Z79.82 Long term (current) use of aspirin; Z87.01 Personal history of pneumonia (recurrent); Z87.440 Personal history of urinary (tract) infections; Z91.81 History of falling; Z87.81 Personal history of (healed) traumatic fracture; Z91.013 Allergy to seafood; Z88.2 Allergy status to sulfonamides; Z91.018 Allergy to other foods; Z90.49 Acquired absence of other specified parts of digestive tract; Z79.51 Long term (current) use of inhaled steroids; Z79.899 Other long term (current) drug therapy; Z71.3 Dietary counseling and surveillance; W01.0XXA Fall on same level from slipping, tripping and stumbling without subsequent striking against object, initial encounter
CPT/HCPCS: 36415; 70450; 71020; 71250; 72125; 80048; 80053; 81003; 82550; 82553; 83735; 83880; 84100; 84484; 85025; 85027; 85610; 85730; 87040; 87086; 93005; 94640; 94760

== ENCOUNTER 2017-11-07 17:06 | Inpatient (IN) | payer BC, MEDICARE ==
[2017-11-07] MEDS ORDERED: SODIUM CHLORIDE 0.9% 500 ML IV STA (17:21)
--- NOTE | 2017-11-07 17:24 | ED ---
General Adult HPI - General Chief complaint: Weakness Stated complaint: lethargic Time Seen by Provider: 11/07/17 17:10 Source: patient, EMS, RN notes reviewed Mode of arrival: EMS Limitations: physical limitation - History of Present Illness Initial comments: This is an 82-year-old female presents emergency Department with generalized weakness. Patient is a very poor historian but the sent her in because he has noticed that she's becoming shorter short of breath. Also there was some report that she had a fever though we did not get a temperature on her currently. Patient denies any pain. Patient denies headache patient denies numbness weakness. Patient denies being dizzy. Patient denies chest pain palpitations difficulty breathing or shortness of breath. Patient denies any recent fever chills. Patient denies abdominal pain patient denies any nausea vomiting or diarrhea. Patient does complain that she has a cough but there is no sputum production. Patient also says she has a little bit of a bedsore on her right buttocks but that is not bothering her. Patient denies any dysuria hematuria urinary frequency. - Related Data Home Medications Medication Instructions Recorded Confirmed Montelukast [Singulair] 10 mg PO HS 09/10/15 11/07/17 Phenytoin Sodium Extended 100 mg PO QAM 09/10/15 11/07/17 [Dilantin] Phenytoin Sodium Extended 200 mg PO HS 09/10/15 11/07/17 [Dilantin] Sertraline [Zoloft] 50 mg PO DAILY 09/10/15 11/07/17 Ammonium Lactate Lotion 1 applic TOPICAL BID PRN 11/05/16 11/07/17 [Lac-Hydrin 12% Lotion] Ipratropium-Albuterol Nebulize 3 ml INHALATION RT-QID 11/05/16 11/07/17 [Duoneb 0.5 mg-3 mg/3 ml Soln] Loratadine [Claritin] 10 mg PO DAILY 11/05/16 11/07/17 Omeprazole [PriLOSEC] 20 mg PO DAILY 11/05/16 11/07/17 Ramelteon [Rozerem] 8 mg PO HS 11/05/16 11/07/17 Simvastatin [Zocor] 20 mg PO HS 11/05/16 11/07/17 cycloSPORINE [Restasis] 1 drop BOTH EYES Q12H 11/05/16 11/07/17 Albuterol Inhaler [Ventolin Hfa 1 - 2 puff INHALATION RT-QID PRN 11/07/17 Inhaler] Budesonide [Pulmicort] 0.5 mg INHALATION RT-BID 11/07/17 11/07/17 Ciclesonide [Alvesco] 1 puff INHALATION RT-BID 11/07/17 11/07/17 Furosemide [Lasix] 20 mg PO BID 11/07/17 11/07/17 Lisinopril [Zestril] 10 mg PO DAILY 11/07/17 11/07/17 Triamcinolone Acetonide 1 spray EA NOSTRIL DAILY 11/07/17 11/07/17 [Triamcinolone Acetonide 0.055MG Nasal] Previous Rx's Medication Instructions Recorded Hydrocodone/Acetaminophen [[place] 1 tab PO Q6H PRN #20 tablet 11/08/16 5-325] Allergies Allergy/AdvReac Type Severity Reaction Status Date / Time shellfish derived [Shellfish] Allergy Unknown Verified 11/07/17 17:58 sulfamethoxazole Allergy Itching Verified 11/07/17 17:58 [From Bactrim] trimethoprim [From Bactrim] Allergy Itching Verified 11/07/17 17:58 yeast, dried [yeast] Allergy Unknown Verified 11/07/17 17:58 Review of Systems ROS Statement: Those systems with pertinent positive or pertinent negative responses have been documented in the HPI. ROS Other: All systems not noted in ROS Statement are negative. Past Medical History Past Medical History: Asthma, Heart Failure, COPD, GERD/Reflux, Hyperlipidemia, Hypertension, Pneumonia Additional Past Medical History / Comment(s): uti, djd, fall/lt rib fx History of Any Multi-Drug Resistant Organisms: None Reported Past Surgical History: Section, Cholecystectomy, Hernia Repair, Orthopedic Surgery Additional Past Surgical History / Comment(s): right wrist rx, right ankle rx Past Anesthesia/Blood Transfusion Reactions: No Reported Reaction Past Psychological History: Depression Smoking Status: Former smoker Past Alcohol Use History: None Reported Past Drug Use History: None Reported - Past Family History Mother History Unknown: Yes Father Family Medical History: Myocardial Infarction ([place]) General Exam - General Exam Comments Initial Comments: GENERAL: Patient is well-developed and well-nourished. Patient is nontoxic and well- hydrated and is in no acute distress. ENT: Neck is soft and supple. No significant lymphadenopathy is noted. Oropharynx is clear. Moist mucous membranes. Neck has full range of motion without eliciting any pain. EYES: The sclera were anicteric and conjunctiva were pink and moist. Extraocular movements were intact and pupils were equal round and reactive to light. Eyelids were unremarkable. PULMONARY: Patient has diminished breath sounds diffusely CARDIOVASCULAR: There is a regular rate and rhythm without any murmurs gallops or rubs. ABDOMEN: Soft and nontender with normal bowel sounds. SKIN: States or decubitus ulcer on the right buttocks. NEUROLOGIC: Patient is alert and oriented 2. Cranial nerves II through XII are grossly intact. Motor and sensory are also intact. Normal speech, volume and content. Symmetrical smile. MUSCULOSKELETAL: Normal extremities with adequate strength and full range of motion. No lower extremity swelling or edema. No calf tenderness. LYMPHATICS: No significant lymphadenopathy is noted PSYCHIATRIC: Normal psychiatric evaluation. Limitations: physical limitation Course Vital Signs 11/07/17 11/07/17 11/07/17 17:14 19:25 21:05 Temperature 99.3 F 101.3 F H 100.1 F H Pulse Rate 95 66 91 Respiratory 16 18 18 Rate Blood Pressure 132/77 139/74 139/74 O2 Sat by Pulse 98 97 96 Oximetry Medical Decision Making - Medical Decision Making EKG shows a sinus rhythm with occasional PVC at a rate of 95 bpm SD interval 288 QRSs 120 QT interval 364 QTC is 457. Patient's EKG shows no ST segment elevation or depression or Patient's x-ray shows some consolidations in the bases. I started the patient on antibiotics. I spoke with [facility] hospitalist and they accepted the admission I admitted the patient and wrote admitting orders - Lab Data Result diagrams: 11/07/17 17:44 11/07/17 17:44 Lab Results 11/07/17 11/07/17 11/07/17 Range/Units 17:44 17:44 17:44 WBC 20.5 H (3.8-10.6) k/uL RBC 4.75 (3.80-5.40) m/uL Hgb 14.3 (11.4-16.0) gm/dL Hct 41.2 (34.0-46.0) % MCV 86.8 (80.0-100.0) fL MCH 30.1 (25.0-35.0) pg MCHC 34.7 (31.0-37.0) g/dL RDW 13.1 (11.5-15.5) % Plt Count 356 (150-450) k/uL Neutrophils % 92 % Lymphocytes % 2 % Monocytes % 5 % Eosinophils % 0 % Basophils % 0 % Neutrophils # 19.0 H (1.3-7.7) k/uL Lymphocytes # 0.4 L (1.0-4.8) k/uL Monocytes # 0.9 (0-1.0) k/uL Eosinophils # 0.1 (0-0.7) k/uL Basophils # 0.0 (0-0.2) k/uL PT (9.0-12.0) sec INR (<1.2) APTT (22.0-30.0) sec Sodium 136 L (137-145) mmol/L Potassium 2.9 L* (3.5-5.1) mmol/L Chloride 85 L (98-107) mmol/L Carbon Dioxide 38 H (22-30) mmol/L Anion Gap 13 mmol/L BUN 39 H (7-17) mg/dL Creatinine 0.60 (0.52-1.04) mg/dL Est GFR (CKD-EPI)AfAm >90 (>60 ml/min/1.73 sqM) Est GFR (CKD-EPI)NonAf 87 (>60 ml/min/1.73 sqM) Glucose 129 H (74-99) mg/dL Plasma Lactic Acid Reynaldo (0.7-2.0) mmol/L Calcium 8.8 (8.4-10.2) mg/dL Magnesium 2.5 H (1.6-2.3) mg/dL Total Bilirubin 0.7 (0.2-1.3) mg/dL AST 90 H (14-36) U/L ALT 81 H (9-52) U/L Alkaline Phosphatase 171 H (38-126) U/L Total Creatine Kinase 23 L (30-135) U/L CK-MB (CK-2) 0.2 (0.0-2.4) ng/mL CK-MB (CK-2) Rel Index 0.9 Troponin I 0.101 H* (0.000-0.034) ng/mL Total Protein 7.9 (6.3-8.2) g/dL Albumin 3.9 (3.5-5.0) g/dL Urine Color Urine Appearance (Clear) Urine pH (5.0-8.0) Ur Specific [place] (1.001-1.035) Urine Protein (Negative) Urine Glucose (UA) (Negative) Urine Ketones (Negative) Urine Blood (Negative) Urine Nitrite (Negative) Urine Bilirubin (Negative) Urine Urobilinogen (<2.0) mg/dL Ur Leukocyte Esterase (Negative) Influenza Type A RNA (Not Detectd) Influenza Type B (PCR) (Not Detectd) 11/07/17 11/07/17 11/07/17 Range/Units 17:44 17:44 20:30 WBC (3.8-10.6) k/uL RBC (3.80-5.40) m/uL Hgb (11.4-16.0) gm/dL Hct (34.0-46.0) % MCV (80.0-100.0) fL MCH (25.0-35.0) pg MCHC (31.0-37.0) g/dL RDW (11.5-15.5) % Plt Count (150-450) k/uL Neutrophils % % Lymphocytes % % Monocytes % % Eosinophils % % Basophils % % Neutrophils # (1.3-7.7) k/uL Lymphocytes # (1.0-4.8) k/uL Monocytes # (0-1.0) k/uL Eosinophils # (0-0.7) k/uL Basophils # (0-0.2) k/uL PT 10.0 (9.0-12.0) sec INR 1.0 (<1.2) APTT 23.2 (22.0-30.0) sec Sodium (137-145) mmol/L Potassium (3.5-5.1) mmol/L Chloride (98-107) mmol/L Carbon Dioxide (22-30) mmol/L Anion Gap mmol/L BUN (7-17) mg/dL Creatinine (0.52-1.04) mg/dL Est GFR (CKD-EPI)AfAm (>60 ml/min/1.73 sqM) Est GFR (CKD-EPI)NonAf (>60 ml/min/1.73 sqM) Glucose (74-99) mg/dL Plasma Lactic Acid Reynaldo 1.0 (0.7-2.0) mmol/L Calcium (8.4-10.2) mg/dL Magnesium (1.6-2.3) mg/dL Total Bilirubin (0.2-1.3) mg/dL AST (14-36) U/L ALT (9-52) U/L Alkaline Phosphatase (38-126) U/L Total Creatine Kinase (30-135) U/L CK-MB (CK-2) (0.0-2.4) ng/mL CK-MB (CK-2) Rel Index Troponin I (0.000-0.034) ng/mL Total Protein (6.3-8.2) g/dL Albumin (3.5-5.0) g/dL Urine Color Yellow Urine Appearance Clear (Clear) Urine pH 7.0 (5.0-8.0) Ur Specific [place] 1.012 (1.001-1.035) Urine Protein Negative (Negative) Urine Glucose (UA) Negative (Negative) Urine Ketones Negative (Negative) Urine Blood Negative (Negative) Urine Nitrite Negative (Negative) Urine Bilirubin Negative (Negative) Urine Urobilinogen 2.0 (<2.0) mg/dL Ur Leukocyte Esterase Negative (Negative) Influenza Type A RNA (Not Detectd) Influenza Type B (PCR) (Not Detectd) 11/07/17 Range/Units 20:30 WBC (3.8-10.6) k/uL RBC (3.80-5.40) m/uL Hgb (11.4-16.0) gm/dL Hct (34.0-46.0) % MCV (80.0-100.0) fL MCH (25.0-35.0) pg MCHC (31.0-37.0) g/dL RDW (11.5-15.5) % Plt Count (150-450) k/uL Neutrophils % % Lymphocytes % % Monocytes % % Eosinophils % % Basophils % % Neutrophils # (1.3-7.7) k/uL Lymphocytes # (1.0-4.8) k/uL Monocytes # (0-1.0) k/uL Eosinophils # (0-0.7) k/uL Basophils # (0-0.2) k/uL PT (9.0-12.0) sec INR (<1.2) APTT (22.0-30.0) sec Sodium (137-145) mmol/L Potassium (3.5-5.1) mmol/L Chloride (98-107) mmol/L Carbon Dioxide (22-30) mmol/L Anion Gap mmol/L BUN (7-17) mg/dL Creatinine (0.52-1.04) mg/dL Est GFR (CKD-EPI)AfAm (>60 ml/min/1.73 sqM) Est GFR (CKD-EPI)NonAf (>60 ml/min/1.73 sqM) Glucose (74-99) mg/dL Plasma Lactic Acid Reynaldo (0.7-2.0) mmol/L Calcium (8.4-10.2) mg/dL Magnesium (1.6-2.3) mg/dL Total Bilirubin (0.2-1.3) mg/dL AST (14-36) U/L ALT (9-52) U/L Alkaline Phosphatase (38-126) U/L Total Creatine Kinase (30-135) U/L CK-MB (CK-2) (0.0-2.4) ng/mL CK-MB (CK-2) Rel Index Troponin I (0.000-0.034) ng/mL Total Protein (6.3-8.2) g/dL Albumin (3.5-5.0) g/dL Urine Color Urine Appearance (Clear) Urine pH (5.0-8.0) Ur Specific [place] (1.001-1.035) Urine Protein (Negative) Urine Glucose (UA) (Negative) Urine Ketones (Negative) Urine Blood (Negative) Urine Nitrite (Negative) Urine Bilirubin (Negative) Urine Urobilinogen (<2.0) mg/dL Ur Leukocyte Esterase (Negative) Influenza Type A RNA Not Detected (Not Detectd) Influenza Type B (PCR) Not Detected (Not Detectd) Disposition Clinical Impression: Hypokalemia, Elevated troponin, Pneumonia Disposition: ADMITTED IP TO THIS HOSP Referrals: Michael Rincon MD [Primary Care Provider] - 1-2 days Time of Disposition: 21:09
[2017-11-07 17:59] LABS: Basophils % (A) 0 %; Eosinophils # (A) 0.1 k/uL (0-0.7); Eosinophils % (A) 0 %; HCT 41.2 % (34.0-46.0); HGB 14.3 gm/dL (11.4-16.0); Lymphocytes # (A) 0.4 k/uL (1.0-4.8); Lymphocytes % (A) 2 %; MCH 30.1 pg (25.0-35.0); MCHC 34.7 g/dL (31.0-37.0); MCV 86.8 fL (80.0-100.0); Mean Platelet Volume 6.5; Monocytes # (A) 0.9 k/uL (0-1.0); Monocytes % (A) 5 %; Neutrophils % (A) 92 %; Platelet Count 356 k/uL (150-450); RBC 4.75 m/uL (3.80-5.40); RDW 13.1 % (11.5-15.5); WBC 20.5 k/uL (3.8-10.6)
[2017-11-07 18:06] LABS: Partial Thromboplastin Time 23.2 sec (22.0-30.0)
[2017-11-07 18:19] LABS: ALT 81 U/L (9-52); AST 90 U/L (14-36); Albumin 3.9 g/dL (3.5-5.0); Alkaline Phosphatase 171 U/L (38-126); Anion Gap 13 mmol/L; Blood Urea Nitrogen 39 mg/dL (7-17); Calcium 8.8 mg/dL (8.4-10.2); Carbon Dioxide 38 mmol/L (22-30); Chloride 85 mmol/L (98-107); Glucose 129 mg/dL (74-99); Magnesium 2.5 mg/dL (1.6-2.3); Sodium 136 mmol/L (137-145); Total Bilirubin 0.7 mg/dL (0.2-1.3); Total Protein 7.9 g/dL (6.3-8.2)
[2017-11-07 18:26] LABS: Creatine Kinase MB 0.2 ng/mL (0.0-2.4)
[2017-11-07 18:31] LABS: Potassium 2.9 mmol/L (3.5-5.1)
[2017-11-07 18:35] LABS: Troponin I 0.101 ng/mL (0.000-0.034)
--- NOTE | 2017-11-07 18:41 | XR ---
EXAMINATION TYPE: XR chest 2V DATE OF EXAM: 11/07/2017 COMPARISON: Chest x-ray from yesterday. CTA chest from 2 days ago. HISTORY: Weakness and fever. TECHNIQUE: Frontal and lateral views of the chest are obtained. FINDINGS: There is persisting cardiomegaly. There is persistent chronic parenchymal fibrosis bilate rally most prominent in the lung bases where there is bibasilar consolidation and/or atelectasis susp ected tiny bilateral pleural effusions. Right-sided tracheal course is redemonstrated. Right-sided ro tation is noted. The osseous structures are intact. IMPRESSION: Cardiomegaly with chronic parenchymal fibrosis and persistent bibasilar consolidation an d likely tiny pleural effusions all redemonstrated.
[2017-11-07] MEDS ORDERED: cefTRIAXone IN SWFI 1,000 MG/10 ML SYRINGE IVP STA (19:39)
[2017-11-07] MEDS ORDERED: POTASSIUM CHLORIDE ER 20 MEQ TAB.ER PO STA (19:40)
[2017-11-07] MEDS ORDERED: POTASSIUM CHLORIDE 20 MEQ in SODIUM CHLORIDE 0.9% 100 ML IVPB ONE (19:40)
[2017-11-07] MEDS ORDERED: IBUPROFEN 600 MG TAB PO STA (19:41)
[2017-11-07] MEDS ORDERED: ACETAMINOPHEN TAB 500 MG TAB PO STA (19:41)
[2017-11-07 20:44] LABS: Appearance,Urine Clear (Clear); Bilirubin,Urine Negative (Negative); Blood,Urine Negative (Negative); Color,Urine Yellow; Glucose,Urine (UA) Negative (Negative); Ketones,Urine Negative (Negative); Leukocyte Esterase,Urine Negative (Negative); Nitrite,Urine Negative (Negative); Protein,Urine Negative (Negative); Specific Gravity,Urine 1.012 (1.001-1.035)
[2017-11-07] MEDS ORDERED: PNEUMONIA PROTOCOL UTILIZED 1 EACH MISC PO PRN (21:10)
[2017-11-07] MEDS ORDERED: AZITHROMYCIN 500 MG in SODIUM CHLORIDE 0.9% 250 ML IVPB STA (21:10)
[2017-11-07] MEDS ORDERED: SODIUM CHLORIDE 0.9% 1,000 ML IV ONE (21:14)
[2017-11-08 05:48] LABS: Basophils % (A) 0 %; Eosinophils # (A) 0.1 k/uL (0-0.7); Eosinophils % (A) 1 %; HCT 37.7 % (34.0-46.0); HGB 12.2 gm/dL (11.4-16.0); Lymphocytes # (A) 0.8 k/uL (1.0-4.8); Lymphocytes % (A) 5 %; MCHC 32.4 g/dL (31.0-37.0); MCV 89.6 fL (80.0-100.0); Mean Platelet Volume 6.8; Monocytes # (A) 0.9 k/uL (0-1.0); Monocytes % (A) 5 %; Neutrophils # (A) 16.4 k/uL (1.3-7.7); Neutrophils % (A) 89 %; Platelet Count 340 k/uL (150-450); RBC 4.21 m/uL (3.80-5.40); RDW 13.4 % (11.5-15.5); WBC 18.4 k/uL (3.8-10.6)
[2017-11-08 06:19] LABS: ALT 60 U/L (9-52); AST 55 U/L (14-36); Albumin 3.1 g/dL (3.5-5.0); Alkaline Phosphatase 129 U/L (38-126); Anion Gap 9 mmol/L; Blood Urea Nitrogen 31 mg/dL (7-17); Calcium 8.1 mg/dL (8.4-10.2); Carbon Dioxide 32 mmol/L (22-30); Chloride 97 mmol/L (98-107); Glucose 93 mg/dL (74-99); Potassium 3.4 mmol/L (3.5-5.1); Sodium 138 mmol/L (137-145); Total Bilirubin 0.6 mg/dL (0.2-1.3); Total Protein 6.4 g/dL (6.3-8.2)
--- NOTE | 2017-11-08 07:58 | XR ---
EXAMINATION TYPE: XR chest 2V DATE OF EXAM: 11/08/2017 COMPARISON: Prior chest x-ray 11/07/2017 HISTORY: Pneumonia TECHNIQUE: Frontal and lateral views of the chest are obtained. FINDINGS: Patient is rotated, there may be underlying scoliosis. Heart is enlarged. Interstitium is increased. Bibasilar increased density persists. Increased AP diameter of the chest may be indicative of underlying COPD. Central vascularity is prominent. Old traumatic change noted to the left shoulde r, proximal humerus. Compression deformity noted in the lower thoracic spine. IMPRESSION: Correlate for congestive heart failure with possible basilar effusions and associated at electasis versus edema, volume overload, there is interstitial lung disease. Correlate to exclude pne umonia. Correlate for possible pulmonary artery hypertension. Large hiatal hernia.
[2017-11-08] MEDS ORDERED: Potassium Replacement Protocol 1 EACH MISC MISCELLANE PRN (08:18)
[2017-11-08] MEDS ORDERED: IPRATROPIUM-ALBUTEROL 3 ML NEB INHALATION PRN (08:19)
[2017-11-08] MEDS ORDERED: IPRATROPIUM-ALBUTEROL 3 ML NEB INHALATION STA (08:19)
[2017-11-08] MEDS: POTASSIUM CHLORIDE ER 20 MEQ TAB.ER PO SCH ×2 (09:40→11:40)
[2017-11-08] MEDS: cefTRIAXone IN SWFI 1,000 MG/10 ML SYRINGE IVP SCH (09:40)
[2017-11-08] MEDS: AZITHROMYCIN 500 MG TAB PO SCH (09:40)
[2017-11-08] MEDS ORDERED: ACETAMINOPHEN TAB 325 MG TAB PO STA (11:30)
[2017-11-08] MEDS ORDERED: AMMONIUM LACTATE 12% LOTION 225 GM BTL TOPICAL PRN (12:01)
--- NOTE | 2017-11-08 12:04 | P.CRDCN ---
History of Present Illness Consult date: 11/08/17 Requesting physician: Francy Hathaway Reason for Consult (text): elevated troponin Chief complaint: generalized weakness, lethargy History of present illness: This Is a pleasant 82-year-old female patient who is somewhat of a poor historian. She has a known history of COPD, she is a former smoker, CHF with unknown ejection fraction at this time, hypertension and hyperlipidemia. Presented to the emergency department with complaints of generalized weakness and lethargy. She had not been feeling well over the last 3 days, not eating well. She is unable to tell me whether or not her cough or shortness of breath are worse than usual. She is found to be febrile on admission with a temp of 101.3. Etiology was asked to the patient in consultation due to her elevated troponin levels. EKG showed sinus rhythm with occasional PVCs, intraventricular conduction delay, unspecific ST-T wave abnormalities, cannot rule out anterior infarct and poor R-wave progression. Average values were reviewed and showed a white count of 20,000, potassium 2.9 which is replaced and currently 3.4, BUN/creatinine 39 and creatinine 0.60. Troponins were elevated with a flat trend coming back at 0.101, 0.103 and 0.107. Chest x-ray impression: Correlate for congestive heart failure with possible basilar effusions and associated atelectasis versus edema, volume overload, there is interstitial lung disease. Correlate to exclude pneumonia. Correlate for possible pulmonary artery hypertension. Large hiatal hernia. Current vital signs show the patient to be afebrile with a blood pressure 135/63 and heart rate in the 70s to 90s. She is on oxygen via nasal cannula. Upon examination, patient is sitting up in bed. She continues to complain of shortness of breath and cough that are chronic. She's had no complaints of chest pain or discomfort , no chest tightness, pressure or heaviness. Past Medical History Past Medical History: Asthma, Heart Failure, COPD, GERD/Reflux, Hyperlipidemia, Hypertension, Pneumonia, Respiratory Disorder Additional Past Medical History / Comment(s): Pt states she has a "sore" on her R buttock, chronic respiratory failure with home O2 at 2L/NC ATC, UTIs, DJD, seizure disorder with last seizure years ago, bilateral lower leg edema, History of Any Multi-Drug Resistant Organisms: None Reported Past Surgical History: Section, Cholecystectomy, Hernia Repair, Orthopedic Surgery Additional Past Surgical History / Comment(s): R wrist and R ankle surgery d/t fractures, R inguinal hernia repair, colonoscopy, bilateral cataract removals with lens implants Past Anesthesia/Blood Transfusion Reactions: No Reported Reaction Smoking Status: Former smoker - Past Family History Mother History Unknown: Yes Family Medical History: No Reported History Additional Family Medical History / Comment(s): Mother was healthy and lived to be 85 yrs old then of a bowel obstruction. Father Family Medical History: Myocardial Infarction ([place]) Additional Family Medical History / Comment(s): Father of a SD at the age of 62 yrs. Medications and Allergies Home Medications Medication Instructions Recorded Confirmed Type Montelukast [Singulair] 10 mg PO HS 09/10/15 11/07/17 History Phenytoin Sodium Extended 100 mg PO QAM 09/10/15 11/07/17 History [Dilantin] Phenytoin Sodium Extended 200 mg PO HS 09/10/15 11/07/17 History [Dilantin] Sertraline [Zoloft] 50 mg PO DAILY 09/10/15 11/07/17 History Ammonium Lactate Lotion 1 applic TOPICAL BID PRN 11/05/16 11/07/17 History [Lac-Hydrin 12% Lotion] Ipratropium-Albuterol Nebulize 3 ml INHALATION RT-QID 11/05/16 11/07/17 History [Duoneb 0.5 mg-3 mg/3 ml Soln] Loratadine [Claritin] 10 mg PO DAILY 11/05/16 11/07/17 History Omeprazole [PriLOSEC] 20 mg PO DAILY 11/05/16 11/07/17 History Ramelteon [Rozerem] 8 mg PO HS 11/05/16 11/07/17 History Simvastatin [Zocor] 20 mg PO HS 11/05/16 11/07/17 History cycloSPORINE [Restasis] 1 drop BOTH EYES Q12H 11/05/16 11/07/17 History Hydrocodone/Acetaminophen [[place] 1 tab PO Q6H PRN #20 tablet 11/08/16 11/07/17 Rx 5-325] Albuterol Inhaler [Ventolin Hfa 1 - 2 puff INHALATION RT-QID PRN 11/07/17 History Inhaler] Budesonide [Pulmicort] 0.5 mg INHALATION RT-BID 11/07/17 11/07/17 History Ciclesonide [Alvesco] 1 puff INHALATION RT-BID 11/07/17 11/07/17 History Furosemide [Lasix] 20 mg PO BID 11/07/17 11/07/17 History Lisinopril [Zestril] 10 mg PO DAILY 11/07/17 11/07/17 History Triamcinolone Acetonide 1 spray EA NOSTRIL DAILY 11/07/17 11/07/17 History [Triamcinolone Acetonide 0.055MG Nasal] Allergies Allergy/AdvReac Type Severity Reaction Status Date / Time shellfish derived [Shellfish] Allergy Unknown Verified 11/07/17 17:58 sulfamethoxazole Allergy Itching Verified 11/07/17 17:58 [From Bactrim] trimethoprim [From Bactrim] Allergy Itching Verified 11/07/17 17:58 yeast, dried [yeast] Allergy Unknown Verified 11/07/17 17:58 Physical Exam Vitals: Vital Signs Temp Pulse Pulse Resp BP BP Pulse Ox 11/08/17 08:45 87 11/08/17 08:32 90 11/08/17 08:16 77 22 135/63 11/08/17 07:40 97.1 F L 73 22 135/63 97 11/08/17 03:23 72 18 127/60 98 11/08/17 00:38 96.3 F L 11/07/17 21:05 100.1 F H 91 18 139/74 96 11/07/17 19:25 101.3 F H 66 18 139/74 97 11/07/17 17:14 99.3 F 95 16 132/77 98 Intake and Output 11/07/17 11/08/17 11/08/17 22:59 06:59 14:59 Other: Weight 81.647 kg PHYSICAL EXAMINATION: HEENT: Head is atraumatic, normocephalic. Pupils equal, round. Neck is supple. There is no elevated jugular venous pressure. HEART EXAMINATION: Heart sounds regular, S1 and S2 normal. No murmur or gallop heard. CHEST EXAMINATION: Lungs reveal coarse expiratory wheezing with scattered rhonchi and crackles noted bilateral bases. No chest wall tenderness is noted on palpation or with deep breathing. ABDOMEN: Soft, nontender. Bowel sounds are heard. No organomegaly noted. EXTREMITIES: 1+ peripheral pulses with no evidence of peripheral edema and no calf tenderness noted. NEUROLOGIC patient is awake, alert and oriented x3 with mild confusion noted. . Results 11/08/17 05:32 11/08/17 05:32 Cardiac Enzymes 11/07/17 11/07/17 11/08/17 Range/Units 17:44 17:44 03:15 AST 90 H (14-36) U/L CK-MB (CK-2) 0.2 (0.0-2.4) ng/mL Troponin I 0.101 H* 0.103 H* (0.000-0.034) ng/mL 11/08/17 11/08/17 Range/Units 05:32 05:32 AST 55 H (14-36) U/L CK-MB (CK-2) (0.0-2.4) ng/mL Troponin I 0.107 H* (0.000-0.034) ng/mL Coagulation 11/07/17 Range/Units 17:44 PT 10.0 (9.0-12.0) sec APTT 23.2 (22.0-30.0) sec CBC 11/07/17 11/08/17 Range/Units 17:44 05:32 WBC 20.5 H 18.4 H (3.8-10.6) k/uL RBC 4.75 4.21 (3.80-5.40) m/uL Hgb 14.3 12.2 (11.4-16.0) gm/dL Hct 41.2 37.7 (34.0-46.0) % Plt Count 356 340 (150-450) k/uL Comprehensive Metabolic Panel 11/07/17 11/08/17 Range/Units 17:44 05:32 Sodium 136 L 138 (137-145) mmol/L Potassium 2.9 L* 3.4 L (3.5-5.1) mmol/L Chloride 85 L 97 L (98-107) mmol/L Carbon Dioxide 38 H 32 H (22-30) mmol/L BUN 39 H 31 H (7-17) mg/dL Creatinine 0.60 0.57 (0.52-1.04) mg/dL Glucose 129 H 93 (74-99) mg/dL Calcium 8.8 8.1 L (8.4-10.2) mg/dL AST 90 H 55 H (14-36) U/L ALT 81 H 60 H (9-52) U/L Alkaline Phosphatase 171 H 129 H (38-126) U/L Total Protein 7.9 6.4 (6.3-8.2) g/dL Albumin 3.9 3.1 L (3.5-5.0) g/dL Current Medications Generic Name Dose Route Start Last Admin Trade Name Freq PRN Reason Stop Dose Admin Albuterol/Ipratropium 3 ml 11/08/17 12:00 Duoneb 0.5 Mg-3 Mg/3 Ml Soln INHALATION RT-QID TARUN Albuterol/Ipratropium 3 ml 11/08/17 08:19 Duoneb 0.5 Mg-3 Mg/3 Ml Soln INHALATION RT-Q2H PRN Shortness Of Breath Or Wheezing Azithromycin 500 mg 11/08/17 09:00 11/08/17 09:40 Zithromax PO 500 mg DAILY TARUN Administration Ceftriaxone Sodium 1,000 mg 11/08/17 09:00 11/08/17 09:40 Rocephin IVP 11/11/17 09:01 1,000 mg Q24HR TARUN Administration Miscellaneous Information 1 each 11/07/17 21:10 Pneumonia Protocol Utilized PO ONCE PRN Per Protocol Miscellaneous Information 1 each 11/08/17 08:18 Potassium Per Protocol MISCELLANE DAILY PRN Per Protocol Protocol Intake and Output 11/07/17 11/08/17 11/08/17 22:59 06:59 14:59 Other: Weight 81.647 kg 11/08/17 05:32 11/08/17 05:32 Assessment and Plan Assessment: #1 pneumonia #2 hypokalemia #3 COPD exacerbation #4 elevated troponins, trend not consistent with acute myocardial injury #5 chronic congestive heart failure, with evidence of possible CHF on x-ray, ejection fraction is not known at this time #6 hypertension #7 hyperlipidemia Plan: From compliance aide perspective, we'll obtain a 2-D echo with Doppler and a BNP. We agree with current treatment of pneumonia. Continue potassium replacement. We will continue to follow patient for further recommendations accordingly. [employer] note has been reviewed, I agree with a documented findings and plan of care. Patient was seen and examined.
[2017-11-08] MEDS: IPRATROPIUM-ALBUTEROL 3 ML NEB INHALATION SCH ×3 (12:29→20:16)
[2017-11-08] MEDS: cycloSPORINE 0.05% OPHTH 0.4 ML DROPERETTE BOTH EYES SCH ×2 (14:16→21:16)
[2017-11-08] MEDS: PANTOPRAZOLE 40 MG TABLET PO SCH (14:16)
[2017-11-08] MEDS: PHENYTOIN SODIUM EXTENDED 100 MG CAP PO SCH ×2 (14:16→21:16)
[2017-11-08] MEDS: FUROSEMIDE 20 MG TAB PO SCH ×2 (14:16→14:17)
[2017-11-08] MEDS ORDERED: IPRATROPIUM-ALBUTEROL 3 ML NEB INHALATION SCH (16:00)
[2017-11-08] MEDS ORDERED: FUROSEMIDE 10 MG/ML 2 ML VIAL IV STA (16:02)
[2017-11-08] MEDS: BUDESONIDE 0.5 MG/2 ML NEBU INHALATION SCH (20:16)
[2017-11-08] MEDS ORDERED: TEMAZEPAM 15 MG CAP PO SCH (21:00)
[2017-11-08] MEDS: MONTELUKAST 10 MG TAB PO SCH (21:16)
[2017-11-08] MEDS: ATORVASTATIN 10 MG TAB PO SCH (21:16)
[2017-11-08] MEDS: HEPARIN SODIUM,PORCINE 5,000 UNIT/ML 1 ML VIAL SQ SCH (21:16)
[2017-11-09 00:10] LABS: Glucose,Whole Blood 109 mg/dL (75-99)
[2017-11-09 06:24] LABS: Basophils % (A) 0 %; Eosinophils # (A) 0.1 k/uL (0-0.7); Eosinophils % (A) 0 %; HCT 36.1 % (34.0-46.0); HGB 12.2 gm/dL (11.4-16.0); Lymphocytes # (A) 0.6 k/uL (1.0-4.8); Lymphocytes % (A) 4 %; MCH 29.8 pg (25.0-35.0); MCHC 33.8 g/dL (31.0-37.0); MCV 88.3 fL (80.0-100.0); Mean Platelet Volume 6.7; Monocytes # (A) 0.9 k/uL (0-1.0); Monocytes % (A) 6 %; Neutrophils % (A) 89 %; Platelet Count 313 k/uL (150-450); RBC 4.09 m/uL (3.80-5.40); RDW 13.4 % (11.5-15.5); WBC 15.7 k/uL (3.8-10.6)
[2017-11-09] MEDS: PANTOPRAZOLE 40 MG TABLET PO SCH (06:26)
[2017-11-09 06:37] LABS: Anion Gap 7 mmol/L; Blood Urea Nitrogen 17 mg/dL (7-17); Calcium 8.3 mg/dL (8.4-10.2); Carbon Dioxide 37 mmol/L (22-30); Chloride 93 mmol/L (98-107); Glucose 114 mg/dL (74-99); Potassium 3.1 mmol/L (3.5-5.1); Sodium 137 mmol/L (137-145)
[2017-11-09] MEDS: BUDESONIDE 0.5 MG/2 ML NEBU INHALATION SCH ×2 (08:30→20:08)
[2017-11-09] MEDS: IPRATROPIUM-ALBUTEROL 3 ML NEB INHALATION SCH ×4 (08:35→20:08)
[2017-11-09] MEDS: cefTRIAXone IN SWFI 1,000 MG/10 ML SYRINGE IVP SCH (09:33)
[2017-11-09] MEDS: FUROSEMIDE 20 MG TAB PO SCH ×2 (09:34→15:47)
[2017-11-09] MEDS: AZITHROMYCIN 500 MG TAB PO SCH (09:34)
[2017-11-09] MEDS: PHENYTOIN SODIUM EXTENDED 100 MG CAP PO SCH ×2 (09:34→20:39)
[2017-11-09] MEDS: POTASSIUM CHLORIDE ER 20 MEQ TAB.ER PO SCH ×2 (09:34→11:57)
[2017-11-09] MEDS: HEPARIN SODIUM,PORCINE 5,000 UNIT/ML 1 ML VIAL SQ SCH ×2 (09:34→20:38)
[2017-11-09] MEDS: cycloSPORINE 0.05% OPHTH 0.4 ML DROPERETTE BOTH EYES SCH ×2 (09:34→20:38)
[2017-11-09 09:59] VITALS: BMI 29.9
--- NOTE | 2017-11-09 10:55 | P.HPIM ---
History of Present Illness H&P Date: 11/08/17 Chief Complaint: Fever and lethargic Patient is a 82-year-old female with known history of COPD, pulmonary fibrosis and interstitial on home O2, hypertension, hyperlipidemia came to ER with generalized weakness fever and lethargic. Patient has been having these symptoms for the past 3 days. Patient does have cough but no sputum production. Patient was found to be febrile with T-max of 101.3 on admission. Chest x-ray showed cardiomegaly with chronic parenchymal fibrosis and persistent bibasilar consolidation and likely tiny pleural effusions. EKG showed sinus rhythm with PVCs WBC 20.5 Potassium 2.9 Troponins 0.101, 0.103 and 0.107. Patient denied any nausea vomiting or abdominal pain. No dysuria no hematuria. No complaints of chest pain or tightness. Patient is currently being treated for pneumonia and possible CHF. Review of Systems Constitutional: Fever and chills and lethargy and generalized weakness.. Abdomen: Patient denied nausea vomiting and diarrhea and abdominal pain. Cardiovascular: Patient denies any chest pain or short of breath no palpitations. Respiratory: Cough without sputum production. Positive shortness of breath Neurologic: Patient denied any numbness or tingling headache. Musculoskeletal: Patient denies any complaints of joint swelling or deformity. Skin: Negative Psychiatric: Negative Endocrine: No heat or cold intolerance. No recent weight gain. Genitourinary: No dysuria or hematuria. All other 14 point ROS negative except the above Past Medical History Past Medical History: Asthma, Heart Failure, COPD, GERD/Reflux, Hyperlipidemia, Hypertension, Pneumonia, Respiratory Disorder Additional Past Medical History / Comment(s): Pt states she has a "sore" on her R buttock, chronic respiratory failure with home O2 at 2L/NC ATC, UTIs, DJD, seizure disorder with last seizure years ago, bilateral lower leg edema, History of Any Multi-Drug Resistant Organisms: None Reported Past Surgical History: Section, Cholecystectomy, Hernia Repair, Orthopedic Surgery Additional Past Surgical History / Comment(s): R wrist and R ankle surgery d/t fractures, R inguinal hernia repair, colonoscopy, bilateral cataract removals with lens implants Past Anesthesia/Blood Transfusion Reactions: No Reported Reaction Smoking Status: Former smoker - Past Family History Mother History Unknown: Yes Family Medical History: No Reported History Additional Family Medical History / Comment(s): Mother was healthy and lived to be 85 yrs old then of a bowel obstruction. Father Family Medical History: Myocardial Infarction (AR) Additional Family Medical History / Comment(s): Father of a AR at the age of 62 yrs. Medications and Allergies Home Medications Medication Instructions Recorded Confirmed Type Montelukast [Singulair] 10 mg PO HS 09/10/15 11/07/17 History Phenytoin Sodium Extended 100 mg PO QAM 09/10/15 11/07/17 History [Dilantin] Phenytoin Sodium Extended 200 mg PO HS 09/10/15 11/07/17 History [Dilantin] Sertraline [Zoloft] 50 mg PO DAILY 09/10/15 11/07/17 History Ammonium Lactate Lotion 1 applic TOPICAL BID PRN 11/05/16 11/07/17 History [Lac-Hydrin 12% Lotion] Ipratropium-Albuterol Nebulize 3 ml INHALATION RT-QID 11/05/16 11/07/17 History [Duoneb 0.5 mg-3 mg/3 ml Soln] Loratadine [Claritin] 10 mg PO DAILY 11/05/16 11/07/17 History Omeprazole [PriLOSEC] 20 mg PO DAILY 11/05/16 11/07/17 History Ramelteon [Rozerem] 8 mg PO HS 11/05/16 11/07/17 History Simvastatin [Zocor] 20 mg PO HS 11/05/16 11/07/17 History cycloSPORINE [Restasis] 1 drop BOTH EYES Q12H 11/05/16 11/07/17 History Hydrocodone/Acetaminophen [Constable 1 tab PO Q6H PRN #20 tablet 11/08/16 11/07/17 Rx 5-325] Albuterol Inhaler [Ventolin Hfa 1 - 2 puff INHALATION RT-QID PRN 11/07/17 History Inhaler] Budesonide [Pulmicort] 0.5 mg INHALATION RT-BID 11/07/17 11/07/17 History Ciclesonide [Alvesco] 1 puff INHALATION RT-BID 11/07/17 11/07/17 History Furosemide [Lasix] 20 mg PO BID 11/07/17 11/07/17 History Lisinopril [Zestril] 10 mg PO DAILY 11/07/17 11/07/17 History Triamcinolone Acetonide 1 spray EA NOSTRIL DAILY 11/07/17 11/07/17 History [Triamcinolone Acetonide 0.055MG Nasal] Allergies Allergy/AdvReac Type Severity Reaction Status Date / Time shellfish derived [Shellfish] Allergy Unknown Verified 11/07/17 17:58 sulfamethoxazole Allergy Itching Verified 11/07/17 17:58 [From Bactrim] trimethoprim [From Bactrim] Allergy Itching Verified 11/07/17 17:58 yeast, dried [yeast] Allergy Unknown Verified 11/07/17 17:58 Physical Exam Vitals: Vital Signs Temp Pulse Pulse Resp BP BP Pulse Ox 11/08/17 08:45 87 11/08/17 08:32 90 11/08/17 08:16 77 22 135/63 11/08/17 07:40 97.1 F L 73 22 135/63 97 11/08/17 03:23 72 18 127/60 98 11/08/17 00:38 96.3 F L 11/07/17 21:05 100.1 F H 91 18 139/74 96 11/07/17 19:25 101.3 F H 66 18 139/74 97 11/07/17 17:14 99.3 F 95 16 132/77 98 Intake and Output 11/07/17 11/08/17 11/08/17 22:59 06:59 14:59 Other: Weight 81.647 kg PHYSICAL EXAMINATION: Patient is lying in the bed comfortably, no acute distress, awake alert and oriented.. HEENT: Normocephalic. Neck is supple. Pupils reactive. Nostrils clear. Oral cavity is moist. Ears reveal no drainage. Neck reveals no JVD, carotid bruits, or thyromegaly. CHEST EXAMINATION: Trachea is central. Symmetrical expansion. Bilateral basilar rhonchi and crackles. Mild expiratory wheeze. CARDIAC: Normal S1, S2 with no gallops. No murmurs ABDOMEN: Soft. Bowel sounds normal. No organomegaly. No abdominal bruits. Extremities: reveal no edema. No clubbing or cyanosis Neurologically awake, alert, oriented x3 with well-coordinated movements. No focal deficits noted Skin: No rash or skin lesions. Psychiatric: Cooperative. Nonsuicidal Musculoskeletal: No joint swelling or deformity. Normal range of motion. Results CBC & Chem 7: 11/08/17 05:32 11/08/17 14:05 Labs: Abnormal Lab Results - Last 24 Hours (Table) 11/07/17 11/07/17 11/07/17 Range/Units 17:44 17:44 17:44 WBC 20.5 H (3.8-10.6) k/uL Neutrophils # 19.0 H (1.3-7.7) k/uL Lymphocytes # 0.4 L (1.0-4.8) k/uL Sodium 136 L (137-145) mmol/L Potassium 2.9 L* (3.5-5.1) mmol/L Chloride 85 L (98-107) mmol/L Carbon Dioxide 38 H (22-30) mmol/L BUN 39 H (7-17) mg/dL Glucose 129 H (74-99) mg/dL Calcium (8.4-10.2) mg/dL Magnesium 2.5 H (1.6-2.3) mg/dL AST 90 H (14-36) U/L ALT 81 H (9-52) U/L Alkaline Phosphatase 171 H (38-126) U/L Total Creatine Kinase 23 L (30-135) U/L Troponin I 0.101 H* (0.000-0.034) ng/mL Albumin (3.5-5.0) g/dL 11/08/17 11/08/17 11/08/17 Range/Units 03:15 05:32 05:32 WBC 18.4 H (3.8-10.6) k/uL Neutrophils # 16.4 H (1.3-7.7) k/uL Lymphocytes # 0.8 L (1.0-4.8) k/uL Sodium (137-145) mmol/L Potassium 3.4 L (3.5-5.1) mmol/L Chloride 97 L (98-107) mmol/L Carbon Dioxide 32 H (22-30) mmol/L BUN 31 H (7-17) mg/dL Glucose (74-99) mg/dL Calcium 8.1 L (8.4-10.2) mg/dL Magnesium (1.6-2.3) mg/dL AST 55 H (14-36) U/L ALT 60 H (9-52) U/L Alkaline Phosphatase 129 H (38-126) U/L Total Creatine Kinase (30-135) U/L Troponin I 0.103 H* (0.000-0.034) ng/mL Albumin 3.1 L (3.5-5.0) g/dL 11/08/17 Range/Units 05:32 WBC (3.8-10.6) k/uL Neutrophils # (1.3-7.7) k/uL Lymphocytes # (1.0-4.8) k/uL Sodium (137-145) mmol/L Potassium (3.5-5.1) mmol/L Chloride (98-107) mmol/L Carbon Dioxide (22-30) mmol/L BUN (7-17) mg/dL Glucose (74-99) mg/dL Calcium (8.4-10.2) mg/dL Magnesium (1.6-2.3) mg/dL AST (14-36) U/L ALT (9-52) U/L Alkaline Phosphatase (38-126) U/L Total Creatine Kinase (30-135) U/L Troponin I 0.107 H* (0.000-0.034) ng/mL Albumin (3.5-5.0) g/dL Thrombosis Risk Factor Assmnt - DVT/VTE Prophylaxis DVT/VTE Prophylaxis: Pharmacologic Prophylaxis ordered - Choose All That Apply Any of the Below Risk Factors Present?: Yes Each Factor Represents 1 point: Abnormal pulmonary function (COPD), Obesity ( BMI >25), Serious lung disease incl. pneumonia (< 1month), Swollen legs (current ) Other Risk Factors: Yes Each Risk Factor Represents 3 Points: Age 75 years or older Other congenital or acquired thrombophilia - If yes, enter type in comment: No Thrombosis Risk Factor Assessment Total Risk Factor Score: 7 Thrombosis Risk Factor Assessment Level: High Risk Assessment and Plan Assessment: Sepsis secondary to pneumonia bibasilar. Patient was febrile and WBC 20.5 Acute on chronic CHF possible diastolic. Ejection fraction unknown at this time. BNp 1550 Mild COPD exacerbation. Improved now Interstitial pulmonary fibrosis Chronic hypoxic respiratory failure due to COPD on home oxygen Severe hypokalemia on admission Troponin elevation. Likely due to demand mismatch and sepsis. Unlikely acute coronary syndrome Hypertension Hyperlipidemia DVT prophylaxis Plan: Patient will be continued on antibiotics and cough ceftriaxone and azithromycin. Continue the breathing treatments and Lasix. We will give a dose of Lasix IV. Continue with home medications and oxygen therapy. Cardiology is following. 2-D echocardiogram was ordered. All the recommendations based on the clinical course. Prognosis is guarded. Time with Patient: Greater than 30
[2017-11-09] MEDS ORDERED: POTASSIUM CHLORIDE ER 20 MEQ TAB.ER PO SCH (17:00)
[2017-11-09] MEDS: ATORVASTATIN 10 MG TAB PO SCH (20:37)
[2017-11-09] MEDS: MONTELUKAST 10 MG TAB PO SCH (20:39)
[2017-11-10] MEDS: PANTOPRAZOLE 40 MG TABLET PO SCH (06:44)
[2017-11-10] MEDS: BUDESONIDE 0.5 MG/2 ML NEBU INHALATION SCH ×2 (08:33→20:22)
[2017-11-10] MEDS: IPRATROPIUM-ALBUTEROL 3 ML NEB INHALATION SCH ×4 (08:33→20:22)
[2017-11-10] MEDS: cefTRIAXone IN SWFI 1,000 MG/10 ML SYRINGE IVP SCH (10:14)
[2017-11-10] MEDS: FUROSEMIDE 20 MG TAB PO SCH ×2 (10:14→15:47)
[2017-11-10] MEDS: AZITHROMYCIN 500 MG TAB PO SCH (10:15)
[2017-11-10] MEDS: HEPARIN SODIUM,PORCINE 5,000 UNIT/ML 1 ML VIAL SQ SCH ×2 (10:15→20:46)
[2017-11-10] MEDS: cycloSPORINE 0.05% OPHTH 0.4 ML DROPERETTE BOTH EYES SCH ×2 (10:15→20:46)
[2017-11-10] MEDS: PHENYTOIN SODIUM EXTENDED 100 MG CAP PO SCH ×2 (10:16→20:47)
[2017-11-10 11:45] LABS: Basophils % (A) 0 %; Eosinophils # (A) 0.2 k/uL (0-0.7); Eosinophils % (A) 1 %; HCT 34.4 % (34.0-46.0); HGB 11.4 gm/dL (11.4-16.0); Lymphocytes # (A) 0.8 k/uL (1.0-4.8); Lymphocytes % (A) 7 %; MCH 29.7 pg (25.0-35.0); MCHC 33.1 g/dL (31.0-37.0); MCV 89.8 fL (80.0-100.0); Mean Platelet Volume 7.2; Monocytes # (A) 1.1 k/uL (0-1.0); Monocytes % (A) 9 %; Neutrophils # (A) 9.4 k/uL (1.3-7.7); Neutrophils % (A) 80 %; Platelet Count 362 k/uL (150-450); RBC 3.83 m/uL (3.80-5.40); RDW 13.6 % (11.5-15.5); WBC 11.7 k/uL (3.8-10.6)
[2017-11-10 11:56] LABS: Anion Gap 6 mmol/L; Blood Urea Nitrogen 31 mg/dL (7-17); Calcium 8.6 mg/dL (8.4-10.2); Carbon Dioxide 37 mmol/L (22-30); Chloride 95 mmol/L (98-107); Glucose 69 mg/dL (74-99); Potassium 4.3 mmol/L (3.5-5.1); Sodium 138 mmol/L (137-145)
[2017-11-10] MEDS: ATORVASTATIN 10 MG TAB PO SCH (20:46)
[2017-11-10] MEDS: MONTELUKAST 10 MG TAB PO SCH (20:47)
--- NOTE | 2017-11-10 21:34 | P.PN ---
Subjective Progress Note Date: 11/09/17 Principal diagnosis: Pneumonia Patient is a 82-year-old female with known history of COPD, pulmonary fibrosis and interstitial on home O2, hypertension, hyperlipidemia came to ER with generalized weakness fever and lethargic. Patient has been having these symptoms for the past 3 days. Patient does have cough but no sputum production. Patient was found to be febrile with T-max of 101.3 on admission. Chest x-ray showed cardiomegaly with chronic parenchymal fibrosis and persistent bibasilar consolidation and likely tiny pleural effusions. EKG showed sinus rhythm with PVCs WBC 20.5 Potassium 2.9 Troponins 0.101, 0.103 and 0.107. Patient denied any nausea vomiting or abdominal pain. No dysuria no hematuria. No complaints of chest pain or tightness. Patient is currently being treated for pneumonia and possible CHF. 11/09/2017 Patient was drowsy this morning likely due to Restoril given last night. Otherwise leukocytosis improving. Breathing status is much better now. Lasix changed to oral twice daily. Otherwise patient feels weak. Clinically improving. no complaints of chest pain or shortness of breath. No fever no chills. Discussed with her at bedside in detail. All other review of systems negative except the above Current medications reviewed. Objective - Vital Signs Vital signs: Vital Signs Temp 97.9 F 11/09/17 18:42 Pulse 80 11/09/17 20:27 Resp 16 11/09/17 15:45 BP 132/70 11/09/17 15:45 Pulse Ox 98 11/09/17 20:08 Intake & Output 11/09/17 11/09/17 11/10/17 06:59 18:59 06:59 Intake Total 10 480 Output Total 800 Balance 10 -320 Weight 84 kg 84 kg Intake: IV 10 0.9 10 Oral 480 Output: Urine 800 Other: Voiding Method Bedpan Bedpan # Voids 1 - Exam Patient is lying in the bed comfortably, no acute distress, awake alert and oriented.. HEENT: Normocephalic. Neck is supple. Pupils reactive. Nostrils clear. Oral cavity is moist. Ears reveal no drainage. Neck reveals no JVD, carotid bruits, or thyromegaly. CHEST EXAMINATION: Trachea is central. Symmetrical expansion. Bilateral basilar rhonchi and crackles. Mild expiratory wheeze. CARDIAC: Normal S1, S2 with no gallops. No murmurs ABDOMEN: Soft. Bowel sounds normal. No organomegaly. No abdominal bruits. Extremities: reveal no edema. No clubbing or cyanosis Neurologically awake, alert, oriented x3 with well-coordinated movements. No focal deficits noted Skin: No rash or skin lesions. Psychiatric: Cooperative. Nonsuicidal Musculoskeletal: No joint swelling or deformity. Normal range of motion. - Labs CBC & Chem 7: 11/10/17 11:28 11/10/17 11:28 Labs: Abnormal Lab Results - Last 24 Hours (Table) 11/08/17 11/09/17 11/09/17 Range/Units 23:55 05:55 05:55 WBC 15.7 H (3.8-10.6) k/uL Neutrophils # 14.0 H (1.3-7.7) k/uL Lymphocytes # 0.6 L (1.0-4.8) k/uL Potassium 3.1 L (3.5-5.1) mmol/L Chloride 93 L (98-107) mmol/L Carbon Dioxide 37 H (22-30) mmol/L Glucose 114 H (74-99) mg/dL POC Glucose (mg/dL) 109 H (75-99) mg/dL Calcium 8.3 L (8.4-10.2) mg/dL Microbiology - Last 24 Hours (Table) 11/07/17 21:50 Blood Culture - Preliminary Blood No Growth after 24 hours 11/08/17 10:00 Gram Stain - Preliminary Sputum Assessment and Plan Assessment: Sepsis secondary to pneumonia bibasilar. Patient was febrile and WBC 20.5. Patient is afebrile now Acute on chronic CHF possible diastolic. Ejection fraction unknown at this time. BNp 1550. Improving clinically Mild COPD exacerbation. Improved now Interstitial pulmonary fibrosis Chronic hypoxic respiratory failure due to COPD on home oxygen Severe hypokalemia on admission Troponin elevation. Likely due to demand mismatch and sepsis. Unlikely acute coronary syndrome Hypertension Hyperlipidemia DVT prophylaxis Plan: Patient will be continued on antibiotics and cough ceftriaxone and azithromycin. Continue the breathing treatments and Lasix.. Continue with home medications and oxygen therapy. Cardiology is following. 2-D echocardiogram was ordered. All the recommendations based on the clinical course. Prognosis is guarded. Time with Patient: Greater than 30
--- NOTE | 2017-11-10 21:36 | P.PN ---
Subjective Progress Note Date: 11/10/17 Principal diagnosis: Pneumonia Patient is a 82-year-old female with known history of COPD, pulmonary fibrosis and interstitial on home O2, hypertension, hyperlipidemia came to ER with generalized weakness fever and lethargic. Patient has been having these symptoms for the past 3 days. Patient does have cough but no sputum production. Patient was found to be febrile with T-max of 101.3 on admission. Chest x-ray showed cardiomegaly with chronic parenchymal fibrosis and persistent bibasilar consolidation and likely tiny pleural effusions. EKG showed sinus rhythm with PVCs WBC 20.5 Potassium 2.9 Troponins 0.101, 0.103 and 0.107. Patient denied any nausea vomiting or abdominal pain. No dysuria no hematuria. No complaints of chest pain or tightness. Patient is currently being treated for pneumonia and possible CHF. 11/09/2017 Patient was drowsy this morning likely due to Restoril given last night. Otherwise leukocytosis improving. Breathing status is much better now. Lasix changed to oral twice daily. Otherwise patient feels weak. Clinically improving. no complaints of chest pain or shortness of breath. No fever no chills. Discussed with her at bedside in detail. 11/10/2017 Patient did improve clinically but feels weak. Leukocytosis resolved. No other acute overnight issues. Anticipate discharge in next 24 hours with more clinical improvement. Active Medications Albuterol/Ipratropium (Duoneb 0.5 Mg-3 Mg/3 Ml Soln) 3 ml INHALATION RT-QID [facility] Last Admin: 11/10/17 20:22 Dose: 3 ml Albuterol/Ipratropium (Duoneb 0.5 Mg-3 Mg/3 Ml Soln) 3 ml INHALATION RT-Q2H PRN PRN Reason: Shortness Of Breath Or Wheezing Atorvastatin Calcium (Lipitor) 10 mg PO HS [facility] Last Admin: 11/10/17 20:46 Dose: 10 mg Azithromycin (Zithromax) 500 mg PO DAILY [facility] Last Admin: 11/10/17 10:15 Dose: 500 mg Budesonide (Pulmicort) 0.5 mg INHALATION RT-BID [facility] Last Admin: 11/10/17 20:22 Dose: 0.5 mg Ceftriaxone Sodium (Rocephin) 1,000 mg IVP Q24HR [facility] Stop: 11/11/17 09:01 Last Admin: 11/10/17 10:14 Dose: 1,000 mg Cyclosporine (Restasis 0.05% Ophth Soln) 1 drops BOTH EYES Q12HR [facility] Last Admin: 11/10/17 20:46 Dose: 1 drops Furosemide (Lasix) 20 mg PO BID@0900,1600 [facility] Last Admin: 11/10/17 15:47 Dose: 20 mg Heparin Sodium (Porcine) (Heparin) 5,000 unit SQ Q12HR [facility] Last Admin: 11/10/17 20:46 Dose: 5,000 unit Lactic Acid (Lac-Hydrin 12%) 1 applic TOPICAL BID PRN PRN Reason: Dry Skin Miscellaneous Information (Pneumonia Protocol Utilized) 1 each PO ONCE PRN PRN Reason: Per Protocol Miscellaneous Information (Potassium Per Protocol) 1 each MISCELLANE DAILY PRN ; Protocol PRN Reason: Per Protocol Montelukast Sodium (Singulair) 10 mg PO [facility] Last Admin: 11/10/17 20:47 Dose: 10 mg Pantoprazole Sodium (Protonix) 40 mg PO AC-BRKFST [facility] Last Admin: 11/10/17 06:44 Dose: 40 mg Phenytoin Sodium (Dilantin) 100 mg PO QAM [facility] Last Admin: 11/10/17 10:16 Dose: 100 mg Phenytoin Sodium (Dilantin) 200 mg PO [facility] Last Admin: 11/10/17 20:47 Dose: 200 mg All other review of systems negative except the above Current medications reviewed. Objective - Vital Signs Vital signs: Vital Signs Temp 97.6 F 11/10/17 16:00 Pulse 84 11/10/17 20:37 Resp 17 11/10/17 16:00 BP 123/60 11/10/17 16:00 Pulse Ox 96 11/10/17 16:00 Intake & Output 11/10/17 11/10/17 11/11/17 06:59 18:59 07:59 Intake Total 808 Output Total 400 250 Balance 408 -250 Weight 83.5 kg Intake: Oral 808 Output: Urine 400 250 Other: Voiding Method Bedpan Bedpan # Voids 1 # Bowel Movements 1 - Exam Patient is lying in the bed comfortably, no acute distress, awake alert and oriented.. HEENT: Normocephalic. Neck is supple. Pupils reactive. Nostrils clear. Oral cavity is moist. Ears reveal no drainage. Neck reveals no JVD, carotid bruits, or thyromegaly. CHEST EXAMINATION: Trachea is central. Symmetrical expansion. Left basilar crackles. No rhonchi. No wheezing CARDIAC: Normal S1, S2 with no gallops. No murmurs ABDOMEN: Soft. Bowel sounds normal. No organomegaly. No abdominal bruits. Extremities: reveal no edema. No clubbing or cyanosis Neurologically awake, alert, oriented x3 with well-coordinated movements. No focal deficits noted Skin: No rash or skin lesions. Psychiatric: Cooperative. Nonsuicidal Musculoskeletal: No joint swelling or deformity. Normal range of motion. - Labs CBC & Chem 7: 11/10/17 11:28 11/10/17 11:28 Labs: Abnormal Lab Results - Last 24 Hours (Table) 11/10/17 11/10/17 Range/Units 11:28 11:28 WBC 11.7 H (3.8-10.6) k/uL Neutrophils # 9.4 H (1.3-7.7) k/uL Lymphocytes # 0.8 L (1.0-4.8) k/uL Monocytes # 1.1 H (0-1.0) k/uL Chloride 95 L (98-107) mmol/L Carbon Dioxide 37 H (22-30) mmol/L BUN 31 H (7-17) mg/dL Glucose 69 L (74-99) mg/dL Microbiology - Last 24 Hours (Table) 11/07/17 21:50 Blood Culture - Preliminary Blood No Growth after 48 hours Assessment and Plan Assessment: Sepsis secondary to pneumonia bibasilar. Patient was febrile and WBC 20.5. Patient is afebrile now Acute on chronic CHF possible diastolic. Ejection fraction unknown at this time. BNp 1550. Improving clinically Mild COPD exacerbation. Improved now Interstitial pulmonary fibrosis Chronic hypoxic respiratory failure due to COPD on home oxygen Severe hypokalemia on admission Troponin elevation. Likely due to demand mismatch and sepsis. Unlikely acute coronary syndrome Hypertension Hyperlipidemia DVT prophylaxis Plan: Patient will be continued on antibiotics and cough ceftriaxone and azithromycin. Continue the breathing treatments and Lasix.. Continue with home medications and oxygen therapy. Cardiology is following. 2-D echocardiogram was ordered. All the recommendations based on the clinical course. Prognosis is guarded. Time with Patient: Greater than 30
[2017-11-11] MEDS: PANTOPRAZOLE 40 MG TABLET PO SCH (06:38)
[2017-11-11] MEDS: IPRATROPIUM-ALBUTEROL 3 ML NEB INHALATION SCH ×4 (06:57→20:03)
[2017-11-11] MEDS: BUDESONIDE 0.5 MG/2 ML NEBU INHALATION SCH ×2 (06:57→20:03)
[2017-11-11] MEDS: cycloSPORINE 0.05% OPHTH 0.4 ML DROPERETTE BOTH EYES SCH ×2 (08:53→21:35)
[2017-11-11] MEDS: cefTRIAXone IN SWFI 1,000 MG/10 ML SYRINGE IVP SCH (08:53)
[2017-11-11] MEDS: HEPARIN SODIUM,PORCINE 5,000 UNIT/ML 1 ML VIAL SQ SCH ×2 (08:54→21:35)
[2017-11-11] MEDS: PHENYTOIN SODIUM EXTENDED 100 MG CAP PO SCH ×2 (08:54→21:35)
[2017-11-11] MEDS: AZITHROMYCIN 500 MG TAB PO SCH (08:54)
[2017-11-11] MEDS: FUROSEMIDE 20 MG TAB PO SCH ×2 (08:54→16:17)
[2017-11-11] MEDS: predniSONE 20 MG TAB PO SCH (16:16)
[2017-11-11 20:59] LABS: Glucose,Whole Blood 153 mg/dL (75-99)
[2017-11-11] MEDS: MONTELUKAST 10 MG TAB PO SCH (21:35)
[2017-11-11] MEDS: ATORVASTATIN 10 MG TAB PO SCH (21:35)
[2017-11-12 00:32] VITALS: RESP 18
[2017-11-12] MEDS ORDERED: ACETAMINOPHEN TAB 325 MG TAB PO PRN (00:45)
[2017-11-12] MEDS: PANTOPRAZOLE 40 MG TABLET PO SCH (06:35)
[2017-11-12] MEDS: BUDESONIDE 0.5 MG/2 ML NEBU INHALATION SCH (08:03)
[2017-11-12] MEDS: IPRATROPIUM-ALBUTEROL 3 ML NEB INHALATION SCH ×2 (08:04→11:22)
[2017-11-12] MEDS: FUROSEMIDE 20 MG TAB PO SCH (08:38)
[2017-11-12] MEDS: AZITHROMYCIN 500 MG TAB PO SCH (08:38)
[2017-11-12] MEDS: PHENYTOIN SODIUM EXTENDED 100 MG CAP PO SCH (08:38)
[2017-11-12] MEDS: cycloSPORINE 0.05% OPHTH 0.4 ML DROPERETTE BOTH EYES SCH (08:38)
[2017-11-12] MEDS: predniSONE 20 MG TAB PO SCH (08:38)
[2017-11-12] MEDS: HEPARIN SODIUM,PORCINE 5,000 UNIT/ML 1 ML VIAL SQ SCH (08:38)
--- NOTE | 2017-11-12 11:53 | P.PN ---
Subjective Progress Note Date: 11/11/17 Principal diagnosis: Pneumonia Patient is a 82-year-old female with known history of COPD, pulmonary fibrosis and interstitial on home O2, hypertension, hyperlipidemia came to ER with generalized weakness fever and lethargic. Patient has been having these symptoms for the past 3 days. Patient does have cough but no sputum production. Patient was found to be febrile with T-max of 101.3 on admission. Chest x-ray showed cardiomegaly with chronic parenchymal fibrosis and persistent bibasilar consolidation and likely tiny pleural effusions. EKG showed sinus rhythm with PVCs WBC 20.5 Potassium 2.9 Troponins 0.101, 0.103 and 0.107. Patient denied any nausea vomiting or abdominal pain. No dysuria no hematuria. No complaints of chest pain or tightness. Patient is currently being treated for pneumonia and possible CHF. 11/09/2017 Patient was drowsy this morning likely due to Restoril given last night. Otherwise leukocytosis improving. Breathing status is much better now. Lasix changed to oral twice daily. Otherwise patient feels weak. Clinically improving. no complaints of chest pain or shortness of breath. No fever no chills. Discussed with her at bedside in detail. 11/10/2017 Patient did improve clinically but feels weak. Leukocytosis resolved. No other acute overnight issues. Anticipate discharge in next 24 hours with more clinical improvement. 11/11/2017 Patient is improving clinically but slowly. Leukocytosis much improved and is in normal range now. Patient is found have mild expiratory wheezing and was started on prednisone 40 mg daily. Otherwise patient denied any nausea vomiting or diarrhea. Anticipate discharge within next 424 hours. All other review of systems negative except the above Current medications reviewed. Active Medications Albuterol/Ipratropium (Duoneb 0.5 Mg-3 Mg/3 Ml Soln) 3 ml INHALATION RT-QID [facility] Last Admin: 11/11/17 20:03 Dose: 3 ml Albuterol/Ipratropium (Duoneb 0.5 Mg-3 Mg/3 Ml Soln) 3 ml INHALATION RT-Q2H PRN PRN Reason: Shortness Of Breath Or Wheezing Atorvastatin Calcium (Lipitor) 10 mg PO HS [facility] Last Admin: 11/11/17 21:35 Dose: 10 mg Azithromycin (Zithromax) 500 mg PO DAILY [facility] Last Admin: 03/11/18 08:54 Dose: 500 mg Budesonide (Pulmicort) 0.5 mg INHALATION RT-BID [facility] Last Admin: 11/11/17 20:03 Dose: 0.5 mg Cyclosporine (Restasis 0.05% Ophth Soln) 1 drops BOTH EYES Q12HR [facility] Last Admin: 11/11/17 21:35 Dose: 1 drops Furosemide (Lasix) 20 mg PO BID@0900,1600 [facility] Last Admin: 11/11/17 16:17 Dose: 20 mg Heparin Sodium (Porcine) (Heparin) 5,000 unit SQ Q12HR [facility] Last Admin: 11/11/17 21:35 Dose: 5,000 unit Lactic Acid (Lac-Hydrin 12%) 1 applic TOPICAL BID PRN PRN Reason: Dry Skin Miscellaneous Information (Pneumonia Protocol Utilized) 1 each PO ONCE PRN PRN Reason: Per Protocol Miscellaneous Information (Potassium Per Protocol) 1 each MISCELLANE DAILY PRN ; Protocol PRN Reason: Per Protocol Montelukast Sodium (Singulair) 10 mg PO [facility] Last Admin: 11/11/17 21:35 Dose: 10 mg Pantoprazole Sodium (Protonix) 40 mg PO AC-BRKFST [facility] Last Admin: 11/11/17 06:38 Dose: 40 mg Phenytoin Sodium (Dilantin) [facility] [place] [facility] Admin: 11/11/17 08:54 Dose: 100 mg Phenytoin Sodium (Dilantin) 200 mg PO [facility] Last Admin: 11/11/17 21:35 Dose: 200 mg Prednisone () 40 mg PO DAILY [facility] Last Admin: 11/11/17 16:16 Dose: 40 mg Objective - Vital Signs Vital signs: Vital Signs Temp 97.9 F 11/11/17 20:35 Pulse 85 11/11/17 20:35 Resp 19 11/11/17 20:35 BP 113/70 11/11/17 20:35 Pulse Ox 96 11/11/17 20:35 Intake & Output 11/11/17 11/11/17 11/12/17 06:59 18:59 06:59 Intake Total 200 Output Total 1100 Balance -900 Weight Intake: Oral 200 Output: Urine 1100 Other: Voiding Method Bedpan # Voids 1 # Bowel Movements 1 - Exam Patient is lying in the bed comfortably, no acute distress, awake alert and oriented.. HEENT: Normocephalic. Neck is supple. Pupils reactive. Nostrils clear. Oral cavity is moist. Ears reveal no drainage. Neck reveals no JVD, carotid bruits, or thyromegaly. CHEST EXAMINATION: Trachea is central. Symmetrical expansion. Left basilar crackles. No rhonchi. Expiratory wheezing wheezing CARDIAC: Normal S1, S2 with no gallops. No murmurs ABDOMEN: Soft. Bowel sounds normal. No organomegaly. No abdominal bruits. Extremities: reveal no edema. No clubbing or cyanosis Neurologically awake, alert, oriented x3 with well-coordinated movements. No focal deficits noted Skin: No rash or skin lesions. Psychiatric: Cooperative. Nonsuicidal Musculoskeletal: No joint swelling or deformity. Normal range of motion. - Labs CBC & Chem 7: 11/10/17 11:28 11/10/17 11:28 Labs: Abnormal Lab Results - Last 24 Hours (Table) 11/11/17 Range/Units 20:57 POC Glucose (mg/dL) 153 H (75-99) mg/dL Microbiology - Last 24 Hours (Table) 11/08/17 10:00 Gram Stain - Preliminary Sputum Sputum Culture - Preliminary Streptococcus pneumoniae Leann albicans 11/07/17 21:50 Blood Culture - Preliminary Blood No Growth after 72 hours Assessment and Plan Assessment: Sepsis secondary to pneumonia bibasilar. Patient was febrile and WBC 20.5. Patient is afebrile now. Leukocytosis normalized. Acute on chronic CHF possible diastolic. Ejection fraction unknown at this time. BNp 1550. Improving clinically Mild COPD exacerbation. Improved now Interstitial pulmonary fibrosis Chronic hypoxic respiratory failure due to COPD on home oxygen Severe hypokalemia on admission Troponin elevation. Likely due to demand mismatch and sepsis. Unlikely acute coronary syndrome Hypertension Hyperlipidemia DVT prophylaxis Plan: Patient will be continued on antibiotics and cough ceftriaxone and azithromycin. Continue the breathing treatments and Lasix.. She started on prednisone 40 mg daily. Continue with home medications and oxygen therapy. Cardiology is following. 2-D echocardiogram was ordered. All the recommendations based on the clinical course. Prognosis is guarded. Time with Patient: Greater than 30
[2017-11-12 12:37] VITALS: TEMP 96.6
[2017-11-12 12:40] VITALS: BP 143/74; PULSE 84
--- NOTE | 2017-11-12 13:12 | ECHOF ---
Referral Reason:Shortness of breath, abnormal troponins MEASUREMENTS -------- HEIGHT: 167.6 cm WEIGHT: 81.6 kg BP: 135/63 RVIDd: 2.7 cm (< 3.3) IVSd: 1.5 cm (0.6 - 1.1) LVIDd: 4.7 cm (3.9 - 5.3) LVPWd: 1.5 cm (0.6 - 1.1) IVSs: 1.7 cm LVIDs: 3.4 cm LVPWs: 1.7 cm LAESV Index (A-L): 27.58 ml/m Ao Diam: 3.2 cm (2.0 - 3.7) AV Cusp: 0.7 cm (1.5 - 2.6) LA Diam: 3.5 cm (2.7 - 3.8) EPSS: 0.3 cm MV E Juan Manuel: 0.87 m/s MV DecT: 258 ms MV A Juan Manuel: 1.07 m/s MV E/A Ratio: 0.81 AV maxP.80 mmHg AV meanP.90 mmHg RAP: 5.00 mmHg RVSP: 17.99 mmHg MV EF SLOPE: 40.40 mm/s (70 - 150) MV EXCURSION: 2.45 cm (> 18.000) FINDINGS -------- Sinus rhythm. This was a technically adequate study. The left ventricular size is normal. There is moderate concentric left ventricular hypertrophy. O verall left ventricular systolic function is normal with, an EF between 55 - 60 %. The right ventricle is normal in size and function. Normal LA size by volume 22+/-6 ml/m2. The right atrium is normal in size. There is moderate aortic valve sclerosis. Trace to mild aortic regurgitation. There is mild aorti c stenosis present. Peak/mean gradient across the Aortic Valve is 28.80mmHg / 16.90mmHg. The mitral valve leaflets are mildly thickened. Mild mitral annular calcification present. There is trace to mild mitral regurgitation. Trace tricuspid regurgitation present. Right ventricular systolic pressure is normal at < 35 mmHg. There is no evidence of pulmonary hypertension. Trace/mild (physiologic) pulmonic regurgitation. The aortic root size is normal. IVC Not well visulized. There is a small pericardial effusion is located near the right ventricle. CONCLUSIONS -------- 1. Sinus rhythm. 2. This was a technically adequate study. 3. The left ventricular size is normal. 4. There is moderate concentric left ventricular hypertrophy. 5. Overall left ventricular systolic function is normal with, an EF between 55 - 60 %. 6. Normal LA size by volume 22+/-6 ml/m2. 7. There is moderate aortic valve sclerosis. 8. Trace to mild aortic regurgitation. 9. There is mild aortic stenosis present. 10. Peak/mean gradient across the Aortic Valve is 28.80mmHg / 16.90mmHg. 11. The mitral valve leaflets are mildly thickened. 12. Mild mitral annular calcification present. 13. There is trace to mild mitral regurgitation. 14. Trace tricuspid regurgitation present. 15. Right ventricular systolic pressure is normal at < 35 mmHg. 16. There is no evidence of pulmonary hypertension. 17. Trace/mild (physiologic) pulmonic regurgitation. 18. The aortic root size is normal. 19. IVC Not well visulized. 20. There is a small pericardial effusion is located near the right ventricle. SPORTS CLERK: Nikolai Morales RDCS
--- NOTE | 2017-11-12 23:12 | P.DS ---
Providers Date of admission: 11/07/17 21:10 Expected date of discharge: 11/12/17 Attending physician: Francy Hathaway Consults: 11/07/17 21:10 Consult Physician Routine Consulting Provider: [facility] Consult Reason/Comments: Elevated troponin Do you want consulting provider notified?: Yes Primary care physician: Michael Hastings [facility] Course: Discharge diagnosis Sepsis secondary to pneumonia bibasilar. Patient was febrile and WBC 20.5. Patient is afebrile now. Leukocytosis normalized. Acute on chronic CHF possible diastolic. Ejection fraction unknown at this time. BNp 1550. Improving clinically Mild COPD exacerbation. Improved now Interstitial pulmonary fibrosis Chronic hypoxic respiratory failure due to COPD on home oxygen Severe hypokalemia on admission Troponin elevation. Likely due to demand mismatch and sepsis. Unlikely acute coronary syndrome Hypertension Hyperlipidemia DVT prophylaxis Hospital course Patient is a 82-year-old female with known history of COPD, pulmonary fibrosis and interstitial on home O2, hypertension, hyperlipidemia came to ER with generalized weakness fever and lethargic. Patient has been having these symptoms for the past 3 days. Patient does have cough but no sputum production. Patient was found to be febrile with T-max of 101.3 on admission. Chest x-ray showed cardiomegaly with chronic parenchymal fibrosis and persistent bibasilar consolidation and likely tiny pleural effusions. EKG showed sinus rhythm with PVCs WBC 20.5 Potassium 2.9 Troponins 0.101, 0.103 and 0.107. Patient denied any nausea vomiting or abdominal pain. No dysuria no hematuria. No complaints of chest pain or tightness. Patient is currently being treated for pneumonia and possible CHF. 11/09/2017 Patient was drowsy this morning likely due to Restoril given last night. Otherwise leukocytosis improving. Breathing status is much better now. Lasix changed to oral twice daily. Otherwise patient feels weak. Clinically improving. no complaints of chest pain or shortness of breath. No fever no chills. Discussed with her at bedside in detail. 11/10/2017 Patient did improve clinically but feels weak. Leukocytosis resolved. No other acute overnight issues. Anticipate discharge in next 24 hours with more clinical improvement. 11/11/2017 Patient is improving clinically but slowly. Leukocytosis much improved and is in normal range now. Patient is found have mild expiratory wheezing and was started on prednisone 40 mg daily. Otherwise patient denied any nausea vomiting or diarrhea. Anticipate discharge within next 424 hours. 11/12/2017 Patient did improve symptomatically. No fever no chills. No nausea vomiting or abdominal pain. Anticipate discharged today. Sputum culture showed strep pneumoniae and Leann albicans Patient was continued on antibiotics and cough ceftriaxone and azithromycin. Continue the breathing treatments and Lasix.. She started on prednisone 40 mg daily. Continue with home medications and oxygen therapy. Cardiology is following. 2-D echocardiogram was ordered. Patient will be discharged home on oral antibiotics and steroid taper. Vital Signs 11/07/17 11/07/17 11/07/17 17:14 19:25 21:05 Temperature 99.3 F 101.3 F H 100.1 F H Pulse Rate 95 66 91 Pulse Rate [ Pulse Oximetery ] Respiratory 16 18 18 Rate Blood Pressure 132/77 139/74 139/74 Blood Pressure [Left Arm] O2 Sat by Pulse 98 97 96 Oximetry 11/08/17 11/08/17 11/08/17 00:38 03:23 07:40 Temperature 96.3 F L 97.1 F L Pulse Rate 72 Pulse Rate [ 73 Pulse Oximetery ] Respiratory 18 22 Rate Blood Pressure 127/60 Blood Pressure 135/63 [Left Arm] O2 Sat by Pulse 98 97 Oximetry 11/08/17 11/08/17 11/08/17 08:16 08:32 08:45 Temperature Pulse Rate 77 90 87 Pulse Rate [ Pulse Oximetery ] Respiratory 22 Rate Blood Pressure 135/63 Blood Pressure [Left Arm] O2 Sat by Pulse Oximetry 11/08/17 11/08/17 11/08/17 12:25 12:29 12:40 Temperature 97.9 F Pulse Rate 80 78 79 Pulse Rate [ Pulse Oximetery ] Respiratory 20 Rate Blood Pressure 169/72 Blood Pressure [Left Arm] O2 Sat by Pulse 98 Oximetry 11/08/17 11/08/17 11/08/17 13:10 16:15 16:25 Temperature Pulse Rate 80 82 Pulse Rate [ 88 Pulse Oximetery ] Respiratory 16 Rate Blood Pressure Blood Pressure 145/69 [Left Arm] O2 Sat by Pulse 97 Oximetry 11/08/17 11/08/17 11/08/17 17:00 20:00 20:16 Temperature 98.2 F 97.5 F L Pulse Rate 76 Pulse Rate [ 80 84 Pulse Oximetery ] Respiratory 18 18 Rate Blood Pressure Blood Pressure 132/60 133/60 [Left Arm] O2 Sat by Pulse 94 L 99 Oximetry 11/08/17 11/09/17 11/09/17 20:26 00:00 04:00 Temperature 97.0 F L 98.5 F Pulse Rate 77 Pulse Rate [ 98 94 Pulse Oximetery ] Respiratory 18 18 Rate Blood Pressure Blood Pressure 118/63 128/68 [Left Arm] O2 Sat by Pulse 98 98 Oximetry 11/09/17 11/09/17 11/09/17 08:25 08:26 08:35 Temperature 98.6 F Pulse Rate 84 Pulse Rate [ 86 Pulse Oximetery ] Respiratory 16 16 Rate Blood Pressure Blood Pressure 120/71 [Left Arm] O2 Sat by Pulse 93 L Oximetry 11/09/17 11/09/17 11/09/17 08:52 12:00 12:12 Temperature Pulse Rate 84 80 88 Pulse Rate [ 80 Pulse Oximetery ] Respiratory 16 Rate Blood Pressure Blood Pressure 125/63 [Left Arm] O2 Sat by Pulse 97 Oximetry 11/09/17 11/09/17 11/09/17 15:45 16:32 16:42 Temperature 99 F Pulse Rate 84 85 Pulse Rate [ 80 Pulse Oximetery ] Respiratory 16 Rate Blood Pressure Blood Pressure 132/70 [Left Arm] O2 Sat by Pulse 98 Oximetry 11/09/17 11/09/17 11/09/17 18:42 20:00 20:08 Temperature 97.9 F 99.8 F H Pulse Rate 89 Pulse Rate [ 90 Pulse Oximetery ] Respiratory 18 Rate Blood Pressure Blood Pressure 135/61 [Left Arm] O2 Sat by Pulse 100 98 Oximetry 11/09/17 11/10/17 11/10/17 20:27 00:00 04:00 Temperature 99.5 F 98.0 F Pulse Rate 80 Pulse Rate [ 86 76 Pulse Oximetery ] Respiratory 18 18 Rate Blood Pressure Blood Pressure 135/66 133/72 [Left Arm] O2 Sat by Pulse 98 97 Oximetry 11/10/17 11/10/17 11/10/17 08:00 08:36 08:46 Temperature 97.7 F Pulse Rate 94 90 Pulse Rate [ 86 Pulse Oximetery ] Respiratory 18 Rate Blood Pressure Blood Pressure 128/62 [Left Arm] O2 Sat by Pulse 98 100 Oximetry 11/10/17 11/10/17 11/10/17 12:00 12:06 12:15 Temperature Pulse Rate 88 96 Pulse Rate [ 80 Pulse Oximetery ] Respiratory 18 Rate Blood Pressure Blood Pressure 113/59 [Left Arm] O2 Sat by Pulse 96 Oximetry 11/10/17 11/10/17 11/10/17 16:00 16:10 16:25 Temperature 97.6 F Pulse Rate 84 84 Pulse Rate [ 85 Pulse Oximetery ] Respiratory 17 Rate Blood Pressure Blood Pressure 123/60 [Left Arm] O2 Sat by Pulse 96 Oximetry 11/10/17 11/10/17 11/10/17 20:00 20:22 20:37 Temperature 97.6 F Pulse Rate 82 84 Pulse Rate [ 90 Pulse Oximetery ] Respiratory 18 Rate Blood Pressure Blood Pressure 137/69 [Left Arm] O2 Sat by Pulse 98 Oximetry 11/11/17 11/11/17 11/11/17 00:00 04:00 06:58 Temperature 96.9 F L 97.9 F Pulse Rate 80 Pulse Rate [ 86 80 Pulse Oximetery ] Respiratory 18 18 Rate Blood Pressure Blood Pressure 139/60 141/63 [Left Arm] O2 Sat by Pulse 97 96 Oximetry 11/11/17 11/11/17 11/11/17 07:15 08:00 11:47 Temperature 97.4 F L Pulse Rate 84 82 Pulse Rate [ 95 Pulse Oximetery ] Respiratory 18 Rate Blood Pressure Blood Pressure 123/63 [Left Arm] O2 Sat by Pulse 94 L Oximetry 11/11/17 11/11/17 11/11/17 11:57 12:00 16:00 Temperature 97.6 F Pulse Rate 84 Pulse Rate [ 82 84 Pulse Oximetery ] Respiratory 18 18 Rate Blood Pressure Blood Pressure 125/63 125/65 [Left Arm] O2 Sat by Pulse 99 97 Oximetry 11/11/17 11/11/17 11/11/17 16:03 16:19 20:03 Temperature Pulse Rate 82 80 86 Pulse Rate [ Pulse Oximetery ] Respiratory Rate Blood Pressure Blood Pressure [Left Arm] O2 Sat by Pulse Oximetry 11/11/17 11/11/17 11/11/17 20:18 20:35 23:45 Temperature 97.9 F Pulse Rate 88 Pulse Rate [ 85 75 Pulse Oximetery ] Respiratory 19 18 Rate Blood Pressure Blood Pressure 113/70 [Left Arm] O2 Sat by Pulse 96 Oximetry 11/12/17 11/12/17 11/12/17 00:20 04:00 08:00 Temperature 98.4 F 97.8 F 97.1 F L Pulse Rate Pulse Rate [ 75 84 88 Pulse Oximetery ] Respiratory 18 18 18 Rate Blood Pressure Blood Pressure 125/67 110/66 138/65 [Left Arm] O2 Sat by Pulse 93 L 94 L 98 Oximetry 11/12/17 11/12/17 11/12/17 08:04 08:20 11:22 Temperature Pulse Rate 85 88 102 H Pulse Rate [ Pulse Oximetery ] Respiratory Rate Blood Pressure Blood Pressure [Left Arm] O2 Sat by Pulse 95 Oximetry 11/12/17 11/12/17 11:33 12:00 Temperature 96.6 F L Pulse Rate 96 Pulse Rate [ 84 Pulse Oximetery ] Respiratory 18 Rate Blood Pressure Blood Pressure 143/74 [Left Arm] O2 Sat by Pulse 96 Oximetry Physical examination Patient is lying in the bed comfortably, no acute distress, awake alert and oriented.. HEENT: Normocephalic. Neck is supple. Pupils reactive. Nostrils clear. Oral cavity is moist. Ears reveal no drainage. Neck reveals no JVD, carotid bruits, or thyromegaly. CHEST EXAMINATION: Trachea is central. Symmetrical expansion. Left basilar crackles. No rhonchi. No wheezing CARDIAC: Normal S1, S2 with no gallops. No murmurs ABDOMEN: Soft. Bowel sounds normal. No organomegaly. No abdominal bruits. Extremities: reveal no edema. No clubbing or cyanosis Neurologically awake, alert, oriented x3 with well-coordinated movements. No focal deficits noted Skin: No rash or skin lesions. Psychiatric: Cooperative. Nonsuicidal Musculoskeletal: No joint swelling or deformity. Normal range of motion. Total time taken greater than 35 minutes including 18 minutes for counseling and coordination of care. Patient Condition at Discharge: Stable Plan - Discharge Summary Discharge Rx Participant: No New Discharge Prescriptions: New Cefuroxime Axetil [Ceftin] 500 mg PO BID 5 Days #10 tab predniSONE See Taper PO DAILY #30 tab Continue Sertraline [Zoloft] 50 mg PO DAILY Montelukast [Singulair] 10 mg PO HS Phenytoin Sodium Extended [Dilantin] 200 mg PO HS Phenytoin Sodium Extended [Dilantin] 100 mg PO QAM Simvastatin [Zocor] 20 mg PO HS cycloSPORINE [Restasis] 1 drop BOTH EYES Q12H Ramelteon [Rozerem] 8 mg PO HS Omeprazole [PriLOSEC] 20 mg PO DAILY Ipratropium-Albuterol Nebulize [Duoneb 0.5 mg-3 mg/3 ml Soln] 3 ml INHALATION RT-QID Loratadine [Claritin] 10 mg PO DAILY Ammonium Lactate Lotion [Lac-Hydrin 12% Lotion] 1 applic TOPICAL BID PRN PRN Reason: Dry Skin Hydrocodone/Acetaminophen [Dyer 5-325] 1 tab PO Q6H PRN #20 tablet PRN Reason: Pain Triamcinolone Acetonide [Triamcinolone Acetonide 0.055MG Nasal] 1 spray EA NOSTRIL DAILY Albuterol Inhaler [Ventolin Hfa Inhaler] 1 - 2 puff INHALATION RT-QID PRN PRN Reason: Shortness Of Breath Lisinopril [Zestril] 10 mg PO DAILY Furosemide [Lasix] 20 mg PO BID Ciclesonide [Alvesco] 1 puff INHALATION RT-BID Budesonide [Pulmicort] 0.5 mg INHALATION RT-BID Discharge Medication List Montelukast [Singulair] 10 mg PO HS 09/10/15 [History] Phenytoin Sodium Extended [Dilantin] 100 mg PO QAM 09/10/15 [History] Phenytoin Sodium Extended [Dilantin] 200 mg PO HS 09/10/15 [History] Sertraline [Zoloft] 50 mg PO DAILY 09/10/15 [History] Ammonium Lactate Lotion [Lac-Hydrin 12% Lotion] 1 applic TOPICAL BID PRN [History] Ipratropium-Albuterol Nebulize [Duoneb 0.5 mg-3 mg/3 ml Soln] 3 ml INHALATION RT -QID 11/05/16 [History] Loratadine [Claritin] 10 mg PO DAILY 11/05/16 [History] Omeprazole [PriLOSEC] 20 mg PO DAILY 11/05/16 [History] Ramelteon [Rozerem] 8 mg PO HS 11/05/16 [History] Simvastatin [Zocor] 20 mg PO HS 11/05/16 [History] cycloSPORINE [Restasis] 1 drop BOTH EYES Q12H 11/05/16 [History] Hydrocodone/Acetaminophen [Dyer 5-325] 1 tab PO Q6H PRN #20 tablet 11/08/16 [Rx ] Albuterol Inhaler [Ventolin Hfa Inhaler] 1 - 2 puff INHALATION RT-QID PRN [History] Budesonide [Pulmicort] 0.5 mg INHALATION RT-BID 11/07/17 [History] Ciclesonide [Alvesco] 1 puff INHALATION RT-BID 11/07/17 [History] Furosemide [Lasix] 20 mg PO BID 11/07/17 [History] Lisinopril [Zestril] 10 mg PO DAILY 11/07/17 [History] Triamcinolone Acetonide [Triamcinolone Acetonide 0.055MG Nasal] 1 spray EA NOSTRIL DAILY 11/07/17 [History] Cefuroxime Axetil [Ceftin] 500 mg PO BID 5 Days #10 tab 11/12/17 [Rx] predniSONE See Taper PO DAILY #30 tab 11/12/17 [Rx] Follow up Appointment(s)/Referral(s): Georgie Stratton MD [STAFF PHYSICIAN] - 1 Week (Office will call with follow up appointment.) Michael Rincon MD [Primary Care Provider] - 1-2 days Chris Stratton MD [STAFF PHYSICIAN] - 11/21/17 11:30 am Patient Instructions/Handouts: Heart Failure (DC), COPD (Chronic Obstructive Pulmonary Disease) (DC), Pneumonia (DC) Activity/Diet/Wound Care/Special Instructions: Home Care [facility] - [phone] Fax discharge information to insurance adviser - [phone] Discharge Disposition: HOME WITH HOME HEALTH SERVICES
== END 2017-11-12 14:24 | disposition home health service (06) | DRG 871 ==
LOC: EC 17:06 → 6SEL 21:10
PROVIDERS: ADMIT Hospitalist; ATTEND Hospitalist
DX: A41.9 Sepsis, unspecified organism (principal); I50.33 Acute on chronic diastolic (congestive) heart failure; J18.9 Pneumonia, unspecified organism; J96.11 Chronic respiratory failure with hypoxia; J44.0 Chronic obstructive pulmonary disease with (acute) lower respiratory infection; J44.1 Chronic obstructive pulmonary disease with (acute) exacerbation; L89.312 Pressure ulcer of right buttock, stage 2; I11.0 Hypertensive heart disease with heart failure; J84.10 Pulmonary fibrosis, unspecified; G40.909 Epilepsy, unspecified, not intractable, without status epilepticus; E78.5 Hyperlipidemia, unspecified; E87.6 Hypokalemia; I45.9 Conduction disorder, unspecified; K21.9 Gastro-esophageal reflux disease without esophagitis; K44.9 Diaphragmatic hernia without obstruction or gangrene; F32.9 Major depressive disorder, single episode, unspecified; M19.90 Unspecified osteoarthritis, unspecified site; R74.8 Abnormal levels of other serum enzymes; I49.3 Ventricular premature depolarization; Z79.899 Other long term (current) drug therapy; Z88.2 Allergy status to sulfonamides; Z88.1 Allergy status to other antibiotic agents; Z91.013 Allergy to seafood; Z99.81 Dependence on supplemental oxygen; Z87.891 Personal history of nicotine dependence; Z87.440 Personal history of urinary (tract) infections; Z90.49 Acquired absence of other specified parts of digestive tract; Z82.49 Family history of ischemic heart disease and other diseases of the circulatory system
CPT/HCPCS: 36415; 71046; 80048; 80053; 81003; 82550; 82553; 83605; 83735; 83880; 84132; 84484; 85025; 85610; 85730; 87040; 87070; 87077; 87186; 87205; 87502; 93005; 93306; 94640; 94760; 96361; 96365; 96366; 96367; 96375; 96376; 99285

== ENCOUNTER 2017-12-17 23:19 | Emergency (ER) | payer MEDICARE ==
[2017-12-17] MEDS ORDERED: IPRATROPIUM-ALBUTEROL 3 ML NEB INHALATION STA ×2 (23:26)
[2017-12-17] MEDS ORDERED: methylPREDNISolone SOD SUCCI 125 MG/2 ML VIAL IV STA (23:26)
[2017-12-17] MEDS ORDERED: CALCIUM CHLORIDE 100 MG/ML 10 ML SYRINGE ONE (23:30)
[2017-12-17] MEDS ORDERED: ATROPINE SULFATE 0.1 MG/ML 10ML SYRINGE ONE (23:30)
[2017-12-17] MEDS ORDERED: SODIUM BICARB 8.4% 50 ML SYR (1 MEQ/ML) ONE (23:30)
[2017-12-17] MEDS ORDERED: EPINEPHrine 10 ML SYRINGE (0.1 MG/ML) ONE (23:30)
[2017-12-17 23:32] VITALS: BP 162/99
--- NOTE | 2017-12-17 23:33 | ED ---
General Adult HPI - General Stated complaint: STEMI Time Seen by Provider: 12/17/17 23:19 Source: RN notes reviewed - History of Present Illness Initial comments: This is an 82-year-old female presents emergency Department complaining of chest pain difficulty breathing prior to arrival. According to EMS it started about 15 minutes before they called them. Once they got the patient in the ambulance she started having a harder time breathing and she seems much tighter to the paramedics so they put her on BiPAP. Patient's EKG indicated them that she was having ST segment elevation [place] so they called ahead and informed us and sent this EKG. Patient denies any chest pain currently but she still is on BiPAP because her breathing is not back to its baseline. Patient denies any recent fever or cough. Patient denies any abdominal pain patient denies any headache patient denies any lightheadedness or dizziness. - Related Data Home Medications Medication Instructions Recorded Confirmed Montelukast [Singulair] 10 mg PO HS 09/10/15 12/08/17 Phenytoin Sodium Extended 100 mg PO QAM 09/10/15 12/08/17 [Dilantin] Phenytoin Sodium Extended 200 mg PO HS 09/10/15 12/08/17 [Dilantin] Sertraline [Zoloft] 50 mg PO DAILY 09/10/15 12/08/17 Ammonium Lactate Lotion 1 applic TOPICAL BID PRN 11/05/16 12/08/17 [Lac-Hydrin 12% Lotion] Ipratropium-Albuterol Nebulize 3 ml INHALATION RT-QID 11/05/16 12/08/17 [Duoneb 0.5 mg-3 mg/3 ml Soln] Omeprazole [PriLOSEC] 20 mg PO DAILY 11/05/16 12/08/17 Simvastatin [Zocor] 20 mg PO HS 11/05/16 12/08/17 cycloSPORINE [Restasis] 1 drop BOTH EYES Q12H 11/05/16 12/08/17 Albuterol Inhaler [Ventolin Hfa 1 - 2 puff INHALATION RT-QID PRN 11/07/17 Inhaler] Budesonide [Pulmicort] 0.5 mg INHALATION RT-BID 11/07/17 12/08/17 Furosemide [Lasix] 20 mg PO BID 11/07/17 12/08/17 Lisinopril [Zestril] 10 mg PO DAILY 11/07/17 12/08/17 Previous Rx's Medication Instructions Recorded guaiFENesin [Mucinex] 1,200 mg PO Q12HR tablet.er 12/14/17 predniSONE See Taper PO DAILY #45 tab 12/14/17 Allergies Allergy/AdvReac Type Severity Reaction Status Date / Time shellfish derived [Shellfish] Allergy Unknown Verified 12/08/17 13:37 Sulfa (Sulfonamide Allergy Unknown Verified 12/08/17 13:37 Antibiotics) sulfamethoxazole Allergy Itching Verified 12/08/17 13:37 [From Bactrim] trimethoprim [From Bactrim] Allergy Itching Verified 12/08/17 13:37 Review of Systems ROS Statement: Those systems with pertinent positive or pertinent negative responses have been documented in the HPI. ROS Other: All systems not noted in ROS Statement are negative. Past Medical History Past Medical History: Asthma, Heart Failure, COPD, GERD/Reflux, Hyperlipidemia, Hypertension, Pneumonia, Respiratory Disorder Additional Past Medical History / Comment(s): Pt stated she has a "sore" on her R buttock, chronic respiratory failure with home O2 at 2L/NC ATC, UTIs, DJD, seizure disorder with last seizure years ago, bilateral lower leg edema,. Respiratory failure - intubated History of Any Multi-Drug Resistant Organisms: ESBL Date of last positivie culture/infection: 12/08/17 MDRO Source:: ESBL URINE Past Surgical History: Section, Cholecystectomy, Hernia Repair, Orthopedic Surgery Additional Past Surgical History / Comment(s): R wrist and R ankle surgery d/t fractures, R inguinal hernia repair, colonoscopy, bilateral cataract removals with lens implants Past Anesthesia/Blood Transfusion Reactions: No Reported Reaction Past Psychological History: Depression Additional Psychological History / Comment(s): Pt resides with her spouse. She ambulates with a walker or cane. She no longer drives, her spouse does the driving. She has home 2L O2 and a nebulizer. No home care, daughter lives next door Smoking Status: Former smoker Past Alcohol Use History: None Reported Additional Past Alcohol Use History / Comment(s): Pt started smoking in 1950 and quit in 1971. She was a ppd smoker. Past Drug Use History: None Reported - Past Family History Mother History Unknown: Yes Family Medical History: No Reported History Additional Family Medical History / Comment(s): Mother was healthy and lived to be 85 yrs old then of a bowel obstruction. Father Family Medical History: Myocardial Infarction ([place]) Additional Family Medical History / Comment(s): Father of a [place] at the age of 62 yrs. General Exam - General Exam Comments Initial Comments: GENERAL: Patient is well-developed and well-nourished. Patient is nontoxic and well- hydrated and is in moderate distress. ENT: Neck is soft and supple. No significant lymphadenopathy is noted. Oropharynx is clear. Moist mucous membranes. Neck has full range of motion without eliciting any pain. EYES: The sclera were anicteric and conjunctiva were pink and moist. Extraocular movements were intact and pupils were equal round and reactive to light. Eyelids were unremarkable. PULMONARY: Decreased air movement with wheezing diffusely CARDIOVASCULAR: There is a regular rate and rhythm without any murmurs gallops or rubs. ABDOMEN: Soft and nontender with normal bowel sounds. No palpable organomegaly was noted. There is no palpable pulsatile mass. SKIN: Skin is clear with no lesions or rashes and otherwise unremarkable. NEUROLOGIC: Patient is alert and oriented x3. Cranial nerves II through XII are grossly intact. Motor and sensory are also intact. Normal speech, volume and content. Symmetrical smile. MUSCULOSKELETAL: Normal extremities with adequate strength and full range of motion. LYMPHATICS: No significant lymphadenopathy is noted PSYCHIATRIC: Normal psychiatric evaluation. Course Vital Signs 12/17/17 12/17/17 12/17/17 23:20 23:26 23:32 Pulse Rate 125 H 128 H Pulse Rate [ Music Librarian ] Respiratory 30 H Rate Blood Pressure 162/99 O2 Sat by Pulse 97 Oximetry 12/17/17 12/17/17 12/17/17 23:34 23:37 23:38 Pulse Rate 80 Pulse Rate [ 125 H Music Librarian ] Respiratory 32 H Rate Blood Pressure O2 Sat by Pulse Oximetry Procedures - Intubation Time Out Performed: Yes Laryngoscope: Connell Size: 3 ET Tube Size: 8 ET Tube Uncuffed: No Tube Secured Location: teeth Tube Placement Confirmation: visualized tube passing through cords, equal breath sounds bilaterally, no breath sounds over epigastrium, confirmation by capnometry Patient Tolerated Procedure: well Intubation Complications: none Medical Decision Making - Medical Decision Making EKG shows undetermined rhythm with a rate of 157 bpm [place] interval is 180 QRSs 158 QT interval 11/07/2017 QTC is 514. Patient was placed on BiPAP initially she arrived. After she was on a few minutes she stated that she was feeling better. Shortly thereafter she stopped breathing and what pulseless. CPR began I intubated the patient and we ran the code for over half an hour and she was pronounced at 1209 never having gotten pulses back. I spoke with the family on 3 different occasions I spoke with the medical insurance claims processor. I spoke with Dr. Chicas twice he came in and saw the patient while we are coding her and agreed that the initial EKG from EMS look like an ST segment elevation but subsequent EKGs showed no obvious ST elevation but widened QRS. - Lab Data Result diagrams: 12/17/17 23:36 12/17/17 23:36 Lab Results 12/17/17 12/17/17 12/17/17 Range/Units 23:26 23:36 23:36 WBC 13.3 H (3.8-10.6) k/uL RBC 4.43 (3.80-5.40) m/uL Hgb 13.0 (11.4-16.0) gm/dL Hct 41.7 (34.0-46.0) % MCV 94.0 (80.0-100.0) fL MCH 29.3 (25.0-35.0) pg MCHC 31.2 (31.0-37.0) g/dL RDW 14.1 (11.5-15.5) % Plt Count 568 H (150-450) k/uL Neutrophils % 76 % Lymphocytes % 17 % Monocytes % 5 % Eosinophils % 1 % Basophils % 0 % Neutrophils # 10.2 H (1.3-7.7) k/uL Lymphocytes # 2.2 (1.0-4.8) k/uL Monocytes # 0.7 (0-1.0) k/uL Eosinophils # 0.1 (0-0.7) k/uL Basophils # 0.0 (0-0.2) k/uL Sodium 131 L (137-145) mmol/L Potassium 5.2 H (3.5-5.1) mmol/L Chloride 94 L (98-107) mmol/L Carbon Dioxide 20 L (22-30) mmol/L Anion Gap 17 mmol/L BUN 54 H (7-17) mg/dL Creatinine 1.10 H (0.52-1.04) mg/dL Est GFR (CKD-EPI)AfAm 55 (>60 ml/min/1.73 sqM) Est GFR (CKD-EPI)NonAf 48 (>60 ml/min/1.73 sqM) Glucose 314 H (74-99) mg/dL POC Glucose (mg/dL) 284 H (75-99) mg/dL POC Glu Chief Engineer'S Helper ID Dinah Dee Calcium 8.7 (8.4-10.2) mg/dL Total Bilirubin 0.4 (0.2-1.3) mg/dL AST 65 H (14-36) U/L ALT 38 (9-52) U/L Alkaline Phosphatase 90 (38-126) U/L Total Creatine Kinase (30-135) U/L CK-MB (CK-2) (0.0-2.4) ng/mL CK-MB (CK-2) Rel Index Troponin I (0.000-0.034) ng/mL Total Protein 6.6 (6.3-8.2) g/dL Albumin 3.6 (3.5-5.0) g/dL 12/17/17 Range/Units 23:36 WBC (3.8-10.6) k/uL RBC (3.80-5.40) m/uL Hgb (11.4-16.0) gm/dL Hct (34.0-46.0) % MCV (80.0-100.0) fL MCH (25.0-35.0) pg MCHC (31.0-37.0) g/dL RDW (11.5-15.5) % Plt Count (150-450) k/uL Neutrophils % % Lymphocytes % % Monocytes % % Eosinophils % % Basophils % % Neutrophils # (1.3-7.7) k/uL Lymphocytes # (1.0-4.8) k/uL Monocytes # (0-1.0) k/uL Eosinophils # (0-0.7) k/uL Basophils # (0-0.2) k/uL Sodium (137-145) mmol/L Potassium (3.5-5.1) mmol/L Chloride (98-107) mmol/L Carbon Dioxide (22-30) mmol/L Anion Gap mmol/L BUN (7-17) mg/dL Creatinine (0.52-1.04) mg/dL Est GFR (CKD-EPI)AfAm (>60 ml/min/1.73 sqM) Est GFR (CKD-EPI)NonAf (>60 ml/min/1.73 sqM) Glucose (74-99) mg/dL POC Glucose (mg/dL) (75-99) mg/dL POC Glu [employer] Engineer'S Helper ID Calcium (8.4-10.2) mg/dL Total Bilirubin (0.2-1.3) mg/dL AST (14-36) U/L ALT (9-52) U/L Alkaline Phosphatase (38-126) U/L Total Creatine Kinase 415 H (30-135) U/L CK-MB (CK-2) 33.3 H* (0.0-2.4) ng/mL CK-MB (CK-2) Rel Index 8.0 Troponin I 3.080 H* (0.000-0.034) ng/mL Total Protein (6.3-8.2) g/dL Albumin (3.5-5.0) g/dL Critical Care Time Critical Care Time: Yes Total Critical Care Time: 45 Disposition Clinical Impression: Acute exacerbation of COPD with asthma, Cardiopulmonary arrest Disposition: Is patient prescribed a controlled substance at discharge?: No Referrals: Michael Rincon MD [Primary Care Provider] - 1-2 days Time of Disposition: 00:41 Preliminary Cause of : Cardiopulmonary arrest
[2017-12-17 23:35] LABS: Glucose,Whole Blood 284 mg/dL (75-99)
[2017-12-17 23:38] VITALS: RESP 32
[2017-12-17 23:45] LABS: Basophils % (A) 0 %; Eosinophils # (A) 0.1 k/uL (0-0.7); Eosinophils % (A) 1 %; HCT 41.7 % (34.0-46.0); Lymphocytes # (A) 2.2 k/uL (1.0-4.8); Lymphocytes % (A) 17 %; MCH 29.3 pg (25.0-35.0); MCHC 31.2 g/dL (31.0-37.0); Mean Platelet Volume 7.4; Monocytes # (A) 0.7 k/uL (0-1.0); Monocytes % (A) 5 %; Neutrophils # (A) 10.2 k/uL (1.3-7.7); Neutrophils % (A) 76 %; Platelet Count 568 k/uL (150-450); RBC 4.43 m/uL (3.80-5.40); RDW 14.1 % (11.5-15.5); WBC 13.3 k/uL (3.8-10.6)
[2017-12-17 23:57] LABS: Albumin 3.6 g/dL (3.5-5.0); Calcium 8.7 mg/dL (8.4-10.2); Potassium 5.2 mmol/L (3.5-5.1); Total Bilirubin 0.4 mg/dL (0.2-1.3); Total Protein 6.6 g/dL (6.3-8.2)
[2017-12-18 00:17] VITALS: PULSE 80
[2017-12-18 00:57] LABS: Creatine Kinase MB 33.3 ng/mL (0.0-2.4); Troponin I 3.08 ng/mL (0.000-0.034)
== END 2017-12-18 02:47 | disposition expired ==
LOC: EC 23:19
DX: J44.1 Chronic obstructive pulmonary disease with (acute) exacerbation (principal); I46.9 Cardiac arrest, cause unspecified; I11.0 Hypertensive heart disease with heart failure; I50.9 Heart failure, unspecified; K21.9 Gastro-esophageal reflux disease without esophagitis; E78.5 Hyperlipidemia, unspecified; G40.909 Epilepsy, unspecified, not intractable, without status epilepticus; F32.9 Major depressive disorder, single episode, unspecified; Z87.891 Personal history of nicotine dependence; Z79.51 Long term (current) use of inhaled steroids; Z79.899 Other long term (current) drug therapy; Z91.013 Allergy to seafood; Z88.2 Allergy status to sulfonamides
CPT/HCPCS: 99291 ×2; 31500 ×2; 92950 ×2; 96374 ×2; 36415; 94660; 94640; 93005; 80053; 82550; 82553; 84484; 85025; J2930; J0461; J0171